=== PATIENT | female | born 1960 | race Hispanic/Latino ===

== ENCOUNTER 2017-02-04 09:35 | Inpatient (IN) | payer OTHER ==
--- NOTE | 2017-02-04 10:25 | ED PDOC ---
Arrival/HPI <Reyna Amaya - Last Filed: 02/04/17 13:51> <Bora Frye - Last Filed: 02/04/17 14:00> - General Chief Complaint: GI Problem Time Seen by Provider: 02/04/17 09:54 - History of Present Illness Narrative History of Present Illness (Text): 02/04/17 10:18 56 y/o F w/ PMHx of tobacco abuse presents to the ED c/o vomiting. Pt admits to ~1week of vomiting after solid food. Vomiting occurs immediately after swallowing. Pt reports liquid intolerance since Saturday w/ worsening yesterday. Pt admits to repeated bouts of NBNB vomiting yesterday w/ any PO intake. Pt reports decreased appetite [id number] and a 15lb weight-loss over the last month. Pt admits to lightheadedness, increased urinary frequency, urgency, and thirst, as well constipation. Pt denies CP, SOB, diarrhea, abd pain. Pt reports smoking cessation x1wk; previous 1ppd smoker. Admits to social EtOH and occasional marijuana. Pt has never had colonoscopy or EGD. 02/04/17 12:25 (Reyna Amaya) Past Medical History - Provider Review Nursing Documentation Reviewed: Yes - Past History Past History: No Previous - Infectious Disease Hx of Infectious Diseases: None - Tetanus Immunization Tetanus Immunization: Unknown - Psychiatric Hx Substance Use: No <Reyna Amaya - Last Filed: 02/04/17 13:51> Family/Social History - Physician Review Nursing Documentation Reviewed: Yes Family/Social History: No Known Family HX Smoking Status: Former Smoker Hx Alcohol Use: No Hx Substance Use: No <Reyna Amaya - Last Filed: 02/04/17 13:51> Allergies/Home Meds <Reyna Amaya - Last Filed: 02/04/17 13:51> <Bora Frye - Last Filed: 02/04/17 14:00> Allergies/Adverse Reactions: Allergies No Known Allergies Allergy (Verified 02/04/17 09:47) Home Medications: Home Meds Medication Instructions Recorded Confirmed No Known Home Med 03/10/16 02/04/17 Review of Systems - Physician Review All systems were reviewed & negative as marked: Yes - Review of Systems Respiratory: absent: SOB Cardiovascular: absent: Chest Pain <Reyna Amaya - Last Filed: 02/04/17 13:51> Physical Exam Vital Signs Reviewed: Yes Temperature: Afebrile Blood Pressure: Hypertensive Pulse: Tachycardic Respiratory Rate: Normal Appearance: Positive for: Ill-Appearing, Cachectic Pain Distress: Mild Mental Status: Positive for: Alert and Oriented X 3 - Systems Exam Head: Present: Atraumatic, Normocephalic Pupils: Present: PERRL Extroacular Muscles: Present: EOMI Conjunctiva: Present: Normal Mouth: Present: Dry Nose (External): Present: Atraumatic Neck: Present: Trachea Midline. No: Lymphadenopathy Respiratory/Chest: Present: Clear to Auscultation, Good Air Exchange. No: Respiratory Distress, Accessory Muscle Use Cardiovascular: Present: Regular Rate and Rhythm, Normal S1, S2. No: Murmurs Abdomen: Present: Normal Bowel Sounds. No: Tenderness, Distention, Peritoneal Signs, Rebound, Guarding Upper Extremity: Present: Normal Inspection Lower Extremity: Present: Normal Inspection Neurological: Present: GCS=15, Speech Normal Skin: Present: Warm, Dry, Normal Color Psychiatric: Present: Alert, Oriented x 3, Normal Insight, Normal Concentration <Dru Amayaanda - Last Filed: 02/04/17 13:51> Medical Decision Making - Lab Interpretations Interpretation: Abnormal lab values - RAD Interpretation Media Clerk: ED Physician (CXR: no active disease) - EKG Interpretation Interpreted by ED Physician: Yes (sinus tach, rate 121, no axis rotation or deviation) Type: 12 lead EKG <Reyna Amaya - Last Filed: 02/04/17 13:51> <Bora Frye - Last Filed: 02/04/17 14:00> ED Course and Treatment: 02/04/17 10:38 56 y/o F w/ vomiting - CXR - EKG - CBC, CMP, Lipase - UA 02/04/17 12:38 Pt w/ BG of 1248. ICU consult ordered. Spoke to Dr. Ely - pt accepted for ICU admission Spoke to Dr. Tsang, PMD, informed him of pt admission to ICU for hyperglycemia. 02/04/17 12:40 (Reyna Amaya) Patient seen and examined with resident. Came up with treatment and disposition plan with resident. (Zelikson,Bora) - Lab Interpretations Lab Results: 02/04/17 10:06 02/04/17 10:06 Lab Results 02/04/17 11:20: Urine Color Yellow, Urine Appearance Clear, Urine pH 6.0, Ur Specific Inglis <= 1.005, Urine Protein Negative, Urine Glucose (UA) >=1000, Urine Ketones 15 H, Urine Blood Negative, Urine Nitrate Negative, Urine Bilirubin Negative, Urine Urobilinogen 0.2, Ur Leukocyte Esterase Negative 02/04/17 10:06: Sodium 134, Potassium 3.3 L, Chloride 91 L, Carbon Dioxide 23, Anion Gap 23 H, BUN 20, Creatinine 0.7, Est GFR ( Amer) > 60, Est GFR ( Non-Af Amer) > 60, Random Glucose 1248 H*, Calcium 10.4, Total Bilirubin 0.6, AST 17, ALT 27, Alkaline Phosphatase 385 H, Total Creatine Kinase 30 L, Total Protein 6.7, Albumin 3.3, Globulin 3.3, Albumin/Globulin Ratio 1.0 L, Lipase 67 02/04/17 10:06: WBC 8.2, RBC 5.22, Hgb 15.8, Hct 47.7, MCV 91.4, MCH 30.3, MCHC 33.1, RDW 12.9, Plt Count 287, MPV 11.6 H, Gran % 84.2 H, Lymph % (Auto) 8.2 L, Cobb % (Auto) 7.5 H, Eos % (Auto) 0.0 L, Baso % (Auto) 0.1, Gran # 6.87 H, Lymph # 0.7 L, Cobb # 0.6, Eos # 0.0, Baso # 0.01 - RAD Interpretation Radiology Orders: 02/04/17 10:05 CXR [CHEST PORTABLE] [RAD] Stat - Medication Orders Current Medication Orders: Insulin Human Regular 100 (units/ Sodium Chloride) 100 mls @ 5 mls/hr IV .Q20H PRN; Protocol; 5 UNITS/HR PRN Reason: TITRATE PER MD ORDER Last Admin: 02/04/17 12:35 Dose: 5 units/hr, 5 mls/hr Sodium Chloride (Sodium Chloride 0.9%) 1,000 mls @ 200 mls/hr IV .Q5H GILDA Discontinued Medications Sodium Chloride (Sodium Chloride 0.9%) 1,000 mls @ 999 mls/hr IV .Q1H1M STA Stop: 02/04/17 11:47 Last Admin: 02/04/17 11:22 Dose: 999 mls/hr Sodium Chloride (Sodium Chloride 0.9%) 1,000 mls @ 999 mls/hr IV .Q1H1M STA Stop: 02/04/17 13:27 Last Admin: 02/04/17 12:40 Dose: 999 mls/hr Ondansetron HCl (Zofran Inj) 4 mg IVP STAT STA Stop: 02/04/17 10:50 Last Admin: 02/04/17 11:22 Dose: 4 mg <Reyna Amaya - Last Filed: 02/04/17 13:51> - Scribe Statement The provider has reviewed the documentation as recorded by the Scribe <Bora Frye - Last Filed: 02/04/17 14:00> - Scribe Statement Lis Mcclelland Provider Scribe Attestation: All medical record entries made by the Scribe were at my direction and personally dictated by me. I have reviewed the chart and agree that the record accurately reflects my personal performance of the history, physical exam, medical decision making, and the department course for this patient. I have also personally directed, reviewed, and agree with the discharge instructions and disposition. (Bora Frye) Disposition/Present on Arrival - Present on Arrival Any Indicators Present on Arrival: No History of DVT/PE: No History of Uncontrolled Diabetes: No Urinary Catheter: No History of Decub. Ulcer: No History Surgical Site Infection Following: None - Disposition Have Diagnosis and Disposition been Completed?: Yes Disposition Time: 11:34 Patient Plan: ICU <Reyna Amaya - Last Filed: 02/04/17 13:51> <Bora Frye - Last Filed: 02/04/17 14:00> - Disposition Diagnosis: New onset type 2 diabetes mellitus Disposition: HOSPITALIZED Patient Problems: Current Active Problems Problem Status Onset New onset type 2 diabetes mellitus Acute Condition: SERIOUS
[2017-02-04] MEDS ORDERED: Sodium Chloride 0.9% 1,000 ML IV STA ×2 (10:47→12:27)
[2017-02-04 11:11] LABS: ADD MANUAL DIFF? NO; BASO # 0.01 K/mm3 (0.0-2.0); BASO % 0.1 % (0.0-3.0); GRAN # 6.87 (1.4-6.5); GRAN % 84.2 % (50.0-68.0); HEMATOCRIT 47.7 % (36.0-48.0); LYMPH # 0.7 (1.2-3.4); LYMPH % 8.2 % (22.0-35.0); MEAN CELL VOLUME 91.4 fL (80.0-105.0); MEAN CORPUSCULAR HEMOGLOBIN 30.3 pg (25.0-35.0); MEAN CORPUSCULAR HGB CONC 33.1 g/dl (31.0-37.0); MEAN PLATELET VOLUME 11.6 fl (7.0-11.0); MONO # 0.6 (0.1-0.6); MONO % 7.5 % (1.0-6.0); PLATELET COUNT 287 10^3/uL (120.0-450.0); RED CELL DISTRIBUTION WIDTH 12.9 % (11.5-14.5); WHITE BLOOD COUNT 8.2 10^3/ul (4.5-11.0)
[2017-02-04 11:13] LABS: ALKALINE PHOSPHATASE 385 U/L (38-133); ALT/SGPT 27 U/L (7-56); AST/SGOT 17 U/L (15-39); BILIRUBIN,TOTAL 0.6 mg/dL (0.2-1.3); BLOOD UREA NITROGEN 20 mg/dL (7-21); CALCIUM 10.4 mg/dL (8.4-10.5); CARBON DIOXIDE 23 mmol/L (21-33); CHLORIDE 91 mmol/L (98-107); GFR AFRICAN-AMERICAN > 60; LIPASE 67 U/L (23-300); POTASSIUM 3.3 mmol/L (3.6-5.0); SODIUM 134 mmol/L (132-148); TOTAL PROTEIN 6.7 g/dL (5.8-8.3)
[2017-02-04 11:24] LABS: GLUCOSE,RANDOM 1248 mg/dL (70-110)
[2017-02-04 11:27] LABS: URINE BILIRUBIN NEGATIVE (NEGATIVE); URINE BLOOD NEGATIVE (NEGATIVE); URINE GLUCOSE (UA) >=1000 mg/dL (NEGATIVE); URINE KETONE 15 mg/dL (NEGATIVE); URINE LEUKOCYTE ESTERASE NEGATIVE Leu/uL (NEGATIVE); URINE PROTEIN NEGATIVE mg/dL (<30 mg/dL); URINE UROBILINOGEN 0.2 E.U./dL (<1 E.U./dL)
[2017-02-04 11:28] LABS: URINE APPEARANCE CLEAR (CLEAR); URINE COLOR YELLOW (YELLOW)
--- NOTE | 2017-02-04 11:45 | RAD ---
HISTORY: vomiting COMPARISON: No prior. FINDINGS: LUNGS: No active pulmonary disease. PLEURA: No significant pleural effusion identified, no pneumothorax apparent. CARDIOVASCULAR: Normal. OSSEOUS STRUCTURES: No significant abnormalities. VISUALIZED UPPER ABDOMEN: Normal. OTHER FINDINGS: None. IMPRESSION: No active disease.
[2017-02-04] MEDS ORDERED: Sodium Chloride 0.9% 1,000 ML IV SCH (12:30)
[2017-02-04] MEDS: Insulin Regular 100 UNITS in Sodium Chloride 0.9% 99 ML IV PRN (12:35)
[2017-02-04 13:02] LABS: BLOOD UREA NITROGEN 18 mg/dL (7-21); CALCIUM 9.8 mg/dL (8.4-10.5); CARBON DIOXIDE 23 mmol/L (21-33); CHLORIDE 102 mmol/L (98-107); GFR AFRICAN-AMERICAN > 60; POTASSIUM 3.1 mmol/L (3.6-5.0); SODIUM 141 mmol/L (132-148)
[2017-02-04 13:29] LABS: GLUCOSE,RANDOM 907 mg/dL (70-110)
[2017-02-04 15:10] VITALS: BMI 17.7
[2017-02-04] MEDS ORDERED: Pneumococcal 23-Valent Vaccine IM ONE (15:10)
--- NOTE | 2017-02-04 15:13 | CARD ---
APPROVED REPORT EKG Measurement Heart [id number] <Conclusion> Sinus tachycardia Biatrial enlargement ST & T wave abnormality, consider infero-lateral ischemia Abnormal ECG
[2017-02-04] MEDS ORDERED: Vancomycin 1gm in NS 250ml 1 GM/250 ML BAG IVPB SCH (15:15)
[2017-02-04 15:44] LABS: BLOOD UREA NITROGEN 17 mg/dL (7-21); CALCIUM 10.6 mg/dL (8.4-10.5); CARBON DIOXIDE 31 mmol/L (21-33); CHLORIDE 108 mmol/L (98-107); GFR AFRICAN-AMERICAN > 60; SODIUM 149 mmol/L (132-148)
[2017-02-04 16:05] LABS: GLUCOSE,RANDOM 454 mg/dL (70-110); POTASSIUM 2.6 mmol/L (3.6-5.0)
[2017-02-04] MEDS ORDERED: Potassium Chloride 40 mEq/30 ml LIQ UD PO ONE ×2 (16:24→16:25)
[2017-02-04] MEDS: Dextrose 5%/0.45% NS 1,000 ML IV SCH ×2 (17:23→22:30)
--- NOTE | 2017-02-04 17:28 | CON ---
DATE: 02/04/2017 HISTORY OF PRESENT ILLNESS: This is a 56-year-old lady without any past medical history who presented after about a week duration of failure to thrive, fatigue, malaise, nausea, loss of appetite. When she was evaluated in the Emergency Room, she was found to have highly elevated glucose up to 1248 and was very dehydrated on physical exam. Of note, she has never been diagnosed with diabetes mellitus in the past. ICU was called for further management and monitoring. No nausea, no vomiting, no diarrhea, no constipation, no chest pain , no shortness of breath. PAST MEDICAL HISTORY: None. MEDICATIONS: None. ALLERGIES: NKDA. SOCIAL HISTORY: The patient is an active smoker and has been smoking for many years. She drinks about a 6-pack of beer a day. No illicit drug abuse. REVIEW OF SYSTEMS: Review of 12 organ system, other than mentioned in history of present illness, is negative. LABORATORY DATA: Sodium 134, potassium 3.3, chloride 91, carbon dioxide 23, BUN 20, creatinine 0.7, glucose 1248. WBC 8.2, hemoglobin 15.8, platelet count 287, hematocrit 47.7. Urine is negative for leukocyte esterase, nitrites; however, positive for ketones and glucose. PHYSICAL EXAMINATION: VITAL SIGNS: Temperature 98.4, heart rate 117, blood pressure 121/80, respiratory rate 17, oxygen saturation 98% on room air. HEAD AND NECK: Atraumatic. LUNGS: Clear to auscultation bilaterally. HEART: Regular rate and rhythm. S1, S2 normal. ABDOMEN: Soft, nontender, nondistended. MUSCULOSKELETAL: No C/C/E. NEUROLOGIC: The patient moves all extremities spontaneously. SKIN: Moist. PSYCHIATRIC: The patient is alert and oriented x 3. ASSESSMENT AND PLAN: This 56-year-old lady with new onset diabetes presented with diabetic ketoacidosis. At present time, will start with IV fluid resuscitation, insulin drip, BMP every 4 hours, Accu-Chek every [address] Arnold from endocrinology service will be contacted for the service. Diabetic education will be provided. Will continue to target euvolemia, euglycemia, normothermia and oxygen saturation more than 90%. When anion gap closed, will switch from insulin drip to longer acting subQ formulations of the insulin. Once blood glucose hits below 250, IV fluids will be switched to D5 containing solutions to avoid hypoglycemia. Of note patient appear to have abscess in groin area--will get CT abdo/pelvis and start Vanco empirically. blood/urine culture was sent ccm time 40 min Marlon Ely MD cc: [id number] TT: 02/04/2017 17:27:37 Confirmation # [id number] Dictation # [id number] mn FARAZD
[2017-02-04 19:45] LABS: PH,URINE 6.5 (4.7-8.0); URINE BILIRUBIN NEGATIVE (NEGATIVE); URINE BLOOD SMALL (NEGATIVE); URINE GLUCOSE (UA) >=1000 mg/dL (NEGATIVE); URINE KETONE TRACE mg/dL (NEGATIVE); URINE LEUKOCYTE ESTERASE TRACE Leu/uL (NEGATIVE); URINE PROTEIN 30 mg/dL (<30 mg/dL); URINE UROBILINOGEN 0.2 E.U./dL (<1 E.U./dL)
[2017-02-04 19:48] LABS: URINE APPEARANCE CLEAR (CLEAR); URINE COLOR YELLOW (YELLOW)
[2017-02-04 20:02] LABS: URINE BACTERIA LARGE (NEG)
[2017-02-04 20:09] LABS: BLOOD UREA NITROGEN 16 mg/dL (7-21); CARBON DIOXIDE 28 mmol/L (21-33); CHLORIDE 109 mmol/L (98-107); GFR AFRICAN-AMERICAN > 60; GLUCOSE,RANDOM 229 mg/dL (70-110); POTASSIUM 4.2 mmol/L (3.6-5.0); SODIUM 141 mmol/L (132-148)
--- NOTE | 2017-02-04 20:59 | CON ---
DATE: 02/04/2017 In ICU 128, room 3. HISTORY OF PRESENT ILLNESS: This is a 56-year-old female with no apparent medical history presenting here with intractable nausea, dyspepsia and vomiting lasting about a week or so, but worse on the da y of admission as noted. She also has had progressively worsening polyuria, nocturia, polydipsia, an d about 15-pound or so weight loss over the past month as noted. On the day of admission, she develo ped dizziness and lightheadedness, worsening until the time of admission prompting the subsequent ER evaluation and admission thereof. She also admits to bifrontal headaches with visual blurring, again worse in the last week or so prior to admission. PAST MEDICAL HISTORY: Essentially unremarkable. SOCIAL HISTORY: The patient admits to chronic alcoholism and cigarette smoking with occasional marij uana use as noted. FAMILY HISTORY: Positive for hypertension and diabetes. REVIEW OF SYSTEMS: As mentioned above, admits to generalized body weakness with easy fatigability an d tiredness and suboptimal energy level, with worsening dizziness and lightheadedness, especially on the day of admission. No chest pains or palpitations or PNDs. Her oral intake has been variable and suboptimal with nausea, dyspepsia and progressively worsening polyuria, nocturia, and polydipsia. S he also admits to vague upper abdominal pain with habitual constipation. PHYSICAL EXAMINATION: GENERAL: This is an average built female in no apparent distress. VITAL SIGNS: Blood pressure of 140/80, pulse of 70 beats per minute and regular, temperature 98, res pirations 20. Height is 5 feet 1, weight is 94 pounds. HEENT: Head normocephalic. Eyes anicteric with pink conjunctivae. Fundoscopy not possible at this time. Ears, nose and throat otherwise normal. NECK: Supple. Thyroid gland is normal size. No carotid bruits or any cervical adenopathy. CARDIOPULMONARY: Some adynamic precordium. S1, S2 is rapid and regular. LUNGS: Clear to auscultation. ABDOMEN: Flat, soft with positive bowel sounds. EXTREMITIES: No peripheral edema. Pulses are +2 bilaterally. SKIN: Her skin turgor is dry and the buccal mucosa and lips are parched and dry. LABORATORY DATA: Chemistry showed a BUN of 20, sodium 134, potassium 3.3, chloride 91, CO2 of 23, gl ucose 1248 mg/dL and creatinine 0.7. Alkaline phosphatase is 385 and lipase is 67. Subsequent gluco ses have ranged from 500 to 907 mg/dL. ASSESSMENT: This is a 56-year-old female with uncontrolled and decompensated type 2 insulin-requirin g diabetes, presenting here with hyperosmolar hyperglycemic state and clinical and biochemical eviden ce of dehydration and prerenal azotemia with spurious hyponatremia. She also has mild metabolic acid osis and ketosis as expected from the underlying starvation ketosis, recent intractable vomiting epis odes thereof. PLAN OF MANAGEMENT: As discussed with the patient and the staff, we will continue and concur with th e present insulin drip infusion as ordered and would use the DKA algorithm as noted. We will also st art her on vigorous IV hydration with normal saline to be continued at 200 mL per hour as ordered. S he is actually very volume depleted and would need vigorous IV hydration as mentioned. We will also obtain a serum C-peptide to ascertain her endogenous pancreatic reserve at this time. In the meantim e, we will obtain serial chemistries and supplement accordingly as needed. We will continue the IV h ydration with normal saline given as 200 mL per hour as ordered. We will obtain serial chemistries a nd supplement accordingly as needed. Baseline lipid panel and thyroid studies have also been obtaine d. We will follow. Kaelyn Arnold MD cc: [id number] TT: 02/04/2017 20:58:40 Confirmation # [id number] Dictation # [id number] gunnar
[2017-02-05 01:09] LABS: BLOOD UREA NITROGEN 15 mg/dL (7-21); CALCIUM 9.6 mg/dL (8.4-10.5); CARBON DIOXIDE 30 mmol/L (21-33); CHLORIDE 106 mmol/L (98-107); GFR AFRICAN-AMERICAN > 60; GLUCOSE,RANDOM 137 mg/dL (70-110); POTASSIUM 3.4 mmol/L (3.6-5.0); SODIUM 140 mmol/L (132-148)
[2017-02-05] MEDS: Dextrose 5%/0.45% NS 1,000 ML IV SCH (03:15)
[2017-02-05] MEDS: Insulin Regular 100 UNITS in Sodium Chloride 0.9% 99 ML IV PRN (05:00)
[2017-02-05] MEDS ORDERED: Potassium Chloride 40 mEq/30 ml LIQ UD PO ONE (06:51)
[2017-02-05 06:53] LABS: ADD MANUAL DIFF? NO
[2017-02-05 07:05] LABS: BASO # 0.01 K/mm3 (0.0-2.0); BASO % 0.1 % (0.0-3.0); EOS # 0.1 (0.0-0.7); EOS % 0.7 % (1.5-5.0); GRAN # 8.92 (1.4-6.5); GRAN % 71.5 % (50.0-68.0); HEMATOCRIT 36.5 % (36.0-48.0); LYMPH # 2.4 (1.2-3.4); LYMPH % 19.4 % (22.0-35.0); MEAN CELL VOLUME 85.3 fL (80.0-105.0); MEAN CORPUSCULAR HEMOGLOBIN 29.4 pg (25.0-35.0); MEAN CORPUSCULAR HGB CONC 34.5 g/dl (31.0-37.0); MEAN PLATELET VOLUME 10.2 fl (7.0-11.0); MONO % 8.3 % (1.0-6.0); PLATELET COUNT 159 10^3/uL (120.0-450.0); RED CELL DISTRIBUTION WIDTH 12.7 % (11.5-14.5); WHITE BLOOD COUNT 12.5 10^3/ul (4.5-11.0)
[2017-02-05 07:23] LABS: ALB/GLOB RATIO 0.8 (1.1-1.8); ALKALINE PHOSPHATASE 195 U/L (38-133); ALT/SGPT 28 U/L (7-56); AST/SGOT 28 U/L (15-39); BILIRUBIN,TOTAL 0.3 mg/dL (0.2-1.3); BLOOD UREA NITROGEN 15 mg/dL (7-21); CALCIUM 9.2 mg/dL (8.4-10.5); CARBON DIOXIDE 27 mmol/L (21-33); CHLORIDE 109 mmol/L (98-107); CHOLESTEROL 138 mg/dL (130-200); GFR AFRICAN-AMERICAN > 60; GLUCOSE,RANDOM 134 mg/dL (70-110); POTASSIUM 3.6 mmol/L (3.6-5.0); SODIUM 140 mmol/L (132-148); TOTAL PROTEIN 5.1 g/dL (5.8-8.3)
[2017-02-05] MEDS: Vancomycin 1gm in NS 250ml 1 GM/250 ML BAG IVPB SCH ×2 (09:03→21:43)
[2017-02-05] MEDS: Insulin Detemir 100 units/ml Vial (Levemir) SC SCH (09:03)
[2017-02-05] MEDS: Enoxaparin 40 mg Syringe SC SCH (09:04)
--- NOTE | 2017-02-05 09:12 | CP.PCM.PN ---
<JuliannaCheyenne - Last Filed: 02/05/17 12:41> Subjective - Date & Time of Evaluation Date of Evaluation: 02/05/17 Time of Evaluation: 09:08 - Subjective Subjective: ICU Progress Note Patient seen and examined at bedside. There were no acute overnight events. Patient reports feeling better. Her appetite has improved and is eating well. She denies having any pain, CP, SOB, n/v/d, numbness/tingling. Objective - Vital Signs/Intake and Output Vital Signs (last 24 hours): Temp Pulse Resp BP Pulse Ox 98.6 F 89 22 142/86 100 02/04/17 15:46 02/05/17 07:01 02/04/17 15:46 02/04/17 15:46 02/04/17 15:46 Intake and Output: 02/05/17 02/05/17 06:59 18:59 Intake Total 2371.3 Output Total 150 Balance 2221.3 - Medications Medications: Current Medications Enoxaparin Sodium (Lovenox) 40 mg SC DAILY GILDA PRN Reason: Protocol Insulin Human Regular 100 (units/ Sodium Chloride) 100 mls @ 5 mls/hr IV .Q20H PRN; Protocol; 5 UNITS/HR PRN Reason: TITRATE PER MD ORDER Last Titration: 02/05/17 06:05 Dose: 3 units/hr, 3 mls/hr Dextrose/Sodium Chloride (Dextrose 5%/0.45% Ns 1000 Ml) 1,000 mls @ 200 mls/hr IV .Q5H GILDA Last Admin: 02/05/17 03:15 Dose: 200 mls/hr Vancomycin HCl (Vancomycin 1gm) 1 gm in 250 mls @ 167 mls/hr IVPB Q12 GILDA PRN Reason: Protocol Insulin Detemir (Levemir) 47 unit SC DAILY [facility] Insulin Human Regular (Humulin R High) 0 units SC ACHS GILDA PRN Reason: Protocol Ondansetron HCl (Zofran Inj) 4 mg IVP Q4H PRN PRN Reason: Nausea/Vomiting - Labs Labs: 02/05/17 06:00 02/05/17 06:00 - Constitutional Appears: No Acute Distress - Head Exam Head Exam: ATRAUMATIC, NORMAL INSPECTION, NORMOCEPHALIC - Eye Exam Eye Exam: Normal appearance, PERRL Pupil Exam: NORMAL ACCOMODATION, PERRL - ENT Exam ENT Exam: Mucous Membranes Moist - Neck Exam Neck Exam: Full ROM - Respiratory Exam Respiratory Exam: Clear to Ausculation Bilateral, NORMAL BREATHING PATTERN. absent: Rales, Rhonchi, Wheezes - Cardiovascular Exam Cardiovascular Exam: REGULAR RHYTHM, +S1, +S2. absent: Gallop, Rubs, Murmur - GI/Abdominal Exam GI & Abdominal Exam: Soft, Normal Bowel Sounds. absent: Rigid, Tenderness, Mass , Rebound - Exam External exam: Lesions (abscess with drainage ) - Extremities Exam Extremities Exam: Full ROM, Normal Inspection. absent: Calf Tenderness, Pedal Edema - Neurological Exam Neurological Exam: Alert, Awake, CN II-XII Intact, Oriented x3 - Psychiatric Exam Psychiatric exam: Normal Affect, Normal Mood - Skin Skin Exam: Dry, Intact, Normal Color, Warm Additional comments: abscess on L inguinal region near mons pubis- draining Assessment and Plan - Assessment and Plan (Free Text) Assessment: This is a 56Y F with PMH of tobacco abuse admitted for hyperglycemia and found to have L sided inguinal abscess. Plan: Neuro: A&O x 3 Maintain normothermia CV: Hemodynamically stable maintain MAP >65 Resp: Comfortable on room air Maintain spO2>90% GI: Pt tolerating diet Zofran prn nausea Nephro: Continue to monitor electrolytes and will replace as needed ID: L inguinal abscess- draining Wound culture pending CT abd/pelvis showed soft tissue mass possibly representing phlegmon with no ecidence of well-defined density abscess Consider surgical consult for I&D Blood culture and urine culture pending Continue Vanco PCT low afebrile, mild leukocytosis Heme: Hgb stable Continue to monitor CBC Endo: Hyperosmolar nonketotic acidosis- improved Anion gap closed - BGM <150 Started SC insulin Continue BGM HgbA1c pending Lipid panel within normal limits Endo consulted- recs appreciated TSH noted to be low, T4 ordered GI ppx: Pepcid DVT ppx: Lovenox Dispo: Patient stable, HONK improved. Patient will be transferred to remote telemetry. case seen, discussed and reviewed with attending. Bert Levine PGY1 <Marlon lEy - Last Filed: 02/05/17 17:35> Objective - Vital Signs/Intake and Output Vital Signs (last 24 hours): Temp Pulse Resp BP Pulse Ox 98.6 F 87 21 129/73 99 02/04/17 15:46 02/05/17 15:20 02/05/17 15:20 02/05/17 15:00 02/05/17 15:20 Intake and Output: 02/05/17 02/05/17 06:59 18:59 Intake Total 2371.3 Output Total 150 Balance 2221.3 - Medications Medications: Current Medications Enoxaparin Sodium (Lovenox) 40 mg SC DAILY GILDA PRN Reason: Protocol Last Admin: 02/05/17 09:04 Dose: 40 mg Famotidine (Pepcid) 40 mg PO HS GILDA Vancomycin HCl (Vancomycin 1gm) 1 gm in 250 mls @ 167 mls/hr IVPB Q12 GILDA PRN Reason: Protocol Last Admin: 02/05/17 09:03 Dose: 167 mls/hr Piperacillin Sod/Tazobactam Sod (Zosyn 3.375 In Ns 100ml) 100 mls @ 200 mls/hr IVPB Q6 GILDA PRN Reason: Protocol Stop: 02/12/17 12:01 Last Admin: 02/05/17 17:22 Dose: 200 mls/hr Insulin Detemir (Levemir) 47 unit SC DAILY GILDA Last Admin: 02/05/17 09:03 Dose: 47 unit Insulin Human Regular (Humulin R High) 0 units SC ACHS GILDA PRN Reason: Protocol Last Admin: 02/05/17 17:22 Dose: Not Given Ondansetron HCl (Zofran Inj) 4 mg IVP Q4H PRN PRN Reason: Nausea/Vomiting - Labs Labs: 02/05/17 06:00 02/05/17 06:00 Addendum Addendum: 02/05/17 17:28 Patient was seen, examined and discussed at bedside with Dr. Lopez. her note reflects my exam, assessment and plan, except as below. Meds/Labs/ONE reviewed 56 yo with new onset DM with DKA, now resolved. AG closed, switched to sc formulation, eating ok. ok to downgrade to medsurg ccm time 40 min
--- NOTE | 2017-02-05 10:28 | CT ---
PROCEDURE: CT Abdomen and Pelvis without intravenous contrast HISTORY: labial abscess COMPARISON: None. TECHNIQUE: Without contrast. Contrast Dose: Radiation dose: Total exam DLP = 239 mGy-cm. This CT exam was performed using one or more of the following dose reduction techniques: Automated exposure control, adjustment of the mA and/or kV according to patient size, and/or use of iterative reconstruction technique. FINDINGS: LOWER THORAX: Unremarkable. LIVER: Unremarkable. No gross lesion or ductal dilatation. GALLBLADDER AND BILE DUCTS: Contracted PANCREAS: Unremarkable. No gross lesion or ductal dilatation. SPLEEN: Unremarkable. ADRENALS: Unremarkable. No mass. KIDNEYS AND URETERS: Unremarkable. No hydronephrosis. No solid mass. 2 mm nonobstructing stone in the left kidney VASCULATURE: Unremarkable. No aortic aneurysm. BOWEL: Unremarkable. No obstruction. No gross mural thickening. APPENDIX: Unremarkable. Normal appendix. PERITONEUM: Unremarkable. No free fluid. No free air. LYMPH NODES: Enlarged inguinal lymph nodes are seen left greater than right. BLADDER: Unremarkable. REPRODUCTIVE: Subcutaneous inflammatory changes are seen in the region of the labia. There is a soft tissue mass which probably represents a phlegmon. There is no evidence of a well-defined fluid density abscess. Findings are best seen on images 128 through 145. BONES: No acute fracture. OTHER FINDINGS: None. IMPRESSION: Subcutaneous inflammatory changes in the region of the left side of the labia without evidence of a well-defined fluid density abscess. There is associated inguinal adenopathy.
--- NOTE | 2017-02-05 10:57 | CP.PCM.CON ---
History of Present Illness - History of Present Illness History of Present Illness: 56 year old male with PMH of significant smoking came in to [facility] because of intermittent vomiting for the past week which has worsened in the past few days, associated with anorexia, and generalized weakness. She is also complaining of pain along her right groin area which she states started about a week ago and has started to drain. She was apparently scratching the groin area previously. She denies animal contacts, no travel outdoors or swimming, no headache or dizziness, no chest pain, no SOB, no abdominal pain, no diarrhea, no dysuria, no dysphagia. In the ED, hyperglycemia was noted on the patient and is currently being treated for this in the ICU. Infectious diseases consult is requested to co-manage the patient's groin infection. Review of Systems - Review of Systems All systems: reviewed and no additional remarkable complaints except (as per HPI ) Past Patient History - Infectious Disease Hx of Infectious Diseases: None - Tetanus Immunizations Tetanus Immunization: Unknown - Past Social History Smoking Status: Former Smoker - CARDIAC Hx Cardiac Disorders: No - PULMONARY Hx Respiratory Disorders: Yes (SMOKED CIGARETTES. QUIT A WEEK AGO. JANUARY 29.) - NEUROLOGICAL Hx Neurological Disorder: No - HEENT Hx HEENT Problems: No - RENAL Hx Chronic Kidney Disease: No - ENDOCRINE/METABOLIC Hx Endocrine Disorders: Yes Hx Diabetes Mellitus Type 1: Yes (NEW O[place]ET) - HEMATOLOGICAL/ONCOLOGICAL Hx Blood Disorders: No - INTEGUMENTARY Hx Dermatological Problems: Yes Other/Comment: 02-04-17 LARGE ABSCESS TO LEFT PERINEAL AREA,ERYTHEMA,SWELLING, RED. BILATERAL GLUTEAL FOLD,BUTTOCKS AREA, RIGHT GROIN AREA AND IN BETWEEN UPPER THIGH HAS MULTIPLE PIMPLE LIKE RASISED RASH. DRY. STATES GOT [place]AMP[place] LAST 3 WEEKS AGO. - MUSCULOSKELETAL/RHEUMATOLOGICAL Hx Musculoskeletal Disorders: Yes Hx Falls: Yes Hx Fractures: Yes (DISLOCATION TO L FINGER) - GASTROINTESTINAL Hx Gastrointestinal Disorders: No - GENITOURINARY/GYNECOLOGICAL Hx Genitourinary Disorders: Yes (URINARY FREQUENCY) - PSYCHIATRIC Hx Psychophysiologic Disorder: No Hx Substance Use: Yes (MARIJUANA USE.LAST USED 2 WEEKS AGO.) Other/Comment: SMOKED CIGARETTES. QUIT JANUARY 2017 - SURGICAL HISTORY Hx Surgeries: No Meds Allergies/Adverse Reactions: Allergies Allergy/AdvReac Type Severity Reaction Status Date / Time No Known Allergies Allergy Verified 02/04/17 14:27 - Medications Medications: Current Medications Enoxaparin Sodium (Lovenox) 40 mg SC DAILY GILDA PRN Reason: Protocol Insulin Human Regular 100 (units/ Sodium Chloride) 100 mls @ 5 mls/hr IV .Q20H PRN; Protocol; 5 UNITS/HR PRN Reason: TITRATE PER MD ORDER Last Titration: 02/05/17 06:05 Dose: 3 units/hr, 3 mls/hr Dextrose/Sodium Chloride (Dextrose 5%/0.45% Ns 1000 Ml) 1,000 mls @ 200 mls/hr IV .Q5H PENDING SALE TO [facility] Last Admin: 02/05/17 03:15 Dose: 200 mls/hr Vancomycin HCl (Vancomycin 1gm) 1 gm in 250 mls @ 167 mls/hr IVPB Q12 GILDA PRN Reason: Protocol Insulin Detemir (Levemir) 47 unit SC DAILY PENDING SALE TO [facility] Insulin Human Regular (Humulin R High) 0 units SC ACHS GILDA PRN Reason: Protocol Ondansetron HCl (Zofran Inj) 4 mg IVP Q4H PRN PRN Reason: Nausea/Vomiting Physical Exam - Constitutional Appears: Non-toxic, No Acute Distress - Head Exam Head Exam: NORMAL INSPECTION - ENT Exam ENT Exam: Mucous Membranes Moist - Neck Exam Neck exam: Negative for: Lymphadenopathy, Meningismus - Respiratory Exam Respiratory Exam: Decreased Breath Sounds - Cardiovascular Exam Cardiovascular Exam: +S1, +S2 - GI/Abdominal Exam GI & Abdominal Exam: Soft. absent: Tenderness - Skin Additional comments: left groin area with erythematous fluctuant mass noted with some pus coming out - tender to touch Results - Vital Signs Recent Vital Signs: Last Vital Signs Temp 98.6 F 02/04/17 15:46 Pulse 89 02/05/17 07:01 Resp 22 02/04/17 15:46 BP 142/86 02/04/17 15:46 Pulse Ox 100 02/04/17 15:46 - Labs Result Diagrams: 02/05/17 06:00 02/05/17 06:00 Labs: Laboratory Results - last 24 hr 02/04/17 02/04/17 02/04/17 12:37 12:40 14:00 WBC RBC Hgb Hct MCV MCH MCHC RDW Plt Count MPV Gran % Lymph % (Auto) [place] % (Auto) Eos % (Auto) Baso % (Auto) Gran # Lymph # [place] # Eos # Baso # Sodium 141 Potassium 3.1 L Chloride 102 Carbon Dioxide 23 Anion Gap 19 BUN 18 Creatinine 0.6 Est GFR ( Amer) > 60 Est GFR (Non-Af Amer) > 60 POC Glucose (mg/dL) > 500 H* > 500 H* Random Glucose 907 H* D Calcium 9.8 Total Bilirubin AST ALT Alkaline Phosphatase Total Protein Albumin Globulin Albumin/Globulin Ratio Triglycerides Cholesterol LDL Cholesterol Direct HDL Cholesterol Procalcitonin TSH 3rd Generation Urine Color Urine Appearance Urine pH Ur Specific [place] Urine Protein Urine Glucose (UA) Urine Ketones Urine Blood Urine Nitrate Urine Bilirubin Urine Urobilinogen Ur Leukocyte Esterase Urine RBC Urine WBC Ur Epithelial Cells Urine Bacteria Urine Other 02/04/17 02/04/17 02/04/17 14:57 15:25 15:25 WBC RBC Hgb Hct MCV MCH MCHC RDW Plt Count MPV Gran % Lymph % (Auto) [place] % (Auto) Eos % (Auto) Baso % (Auto) Gran # Lymph # [place] # Eos # Baso # Sodium 149 H Potassium 2.6 L* Chloride 108 H Carbon Dioxide 31 Anion Gap 13 BUN 17 Creatinine 0.6 Est GFR ( Amer) > 60 Est GFR (Non-Af Amer) > 60 POC Glucose (mg/dL) 494 H* Random Glucose 454 H* D Calcium 10.6 H Total Bilirubin AST ALT Alkaline Phosphatase Total Protein Albumin Globulin Albumin/Globulin Ratio Triglycerides Cholesterol LDL Cholesterol Direct HDL Cholesterol Procalcitonin 0.10 L TSH 3rd Generation Urine Color Urine Appearance Urine pH Ur Specific [place] Urine Protein Urine Glucose (UA) Urine Ketones Urine Blood Urine Nitrate Urine Bilirubin Urine Urobilinogen Ur Leukocyte Esterase Urine RBC Urine WBC Ur Epithelial Cells Urine Bacteria Urine Other 02/04/17 02/04/17 02/04/17 16:18 16:49 18:08 WBC RBC Hgb Hct MCV MCH MCHC RDW Plt Count MPV Gran % Lymph % (Auto) [place] % (Auto) Eos % (Auto) Baso % (Auto) Gran # Lymph # [place] # Eos # Baso # Sodium Potassium Chloride Carbon Dioxide Anion Gap BUN Creatinine Est GFR ( Amer) Est GFR (Non-Af Amer) POC Glucose (mg/dL) 290 H 247 H 220 H Random Glucose Calcium Total Bilirubin AST ALT Alkaline Phosphatase Total Protein Albumin Globulin Albumin/Globulin Ratio Triglycerides Cholesterol LDL Cholesterol Direct HDL Cholesterol Procalcitonin TSH 3rd Generation Urine Color Urine Appearance Urine pH Ur Specific [place] Urine Protein Urine Glucose (UA) Urine Ketones Urine Blood Urine Nitrate Urine Bilirubin Urine Urobilinogen Ur Leukocyte Esterase Urine RBC Urine WBC Ur Epithelial Cells Urine Bacteria Urine Other 02/04/17 02/04/17 02/04/17 19:09 19:15 19:56 WBC RBC Hgb Hct MCV MCH MCHC RDW Plt Count MPV Gran % Lymph % (Auto) [place] % (Auto) Eos % (Auto) Baso % (Auto) Gran # Lymph # [place] # Eos # Baso # Sodium 141 Potassium 4.2 Chloride 109 H Carbon Dioxide 28 Anion Gap 8 L BUN 16 Creatinine 0.5 Est GFR ( Amer) > 60 Est GFR (Non-Af Amer) > 60 POC Glucose (mg/dL) 268 H Random Glucose 229 H Calcium 10.0 Total Bilirubin AST ALT Alkaline Phosphatase Total Protein Albumin Globulin Albumin/Globulin Ratio Triglycerides Cholesterol LDL Cholesterol Direct HDL Cholesterol Procalcitonin TSH 3rd Generation Urine Color Yellow Urine Appearance Clear Urine pH 6.5 Ur Specific [place] 1.020 Urine Protein 30 H Urine Glucose (UA) >=1000 Urine Ketones Trace H Urine Blood Small H Urine Nitrate Negative Urine Bilirubin Negative Urine Urobilinogen 0.2 Ur Leukocyte Esterase Trace H Urine RBC 5 - 10 Urine WBC 10 - 15 Ur Epithelial Cells 3 - 4 Urine Bacteria Large Urine Other Uyeast 02/04/17 02/04/17 02/04/17 21:02 22:04 22:56 WBC RBC Hgb Hct MCV MCH MCHC RDW Plt Count MPV Gran % Lymph % (Auto) [place] % (Auto) Eos % (Auto) Baso % (Auto) Gran # Lymph # [place] # Eos # Baso # Sodium Potassium Chloride Carbon Dioxide Anion Gap BUN Creatinine Est GFR ( Amer) Est GFR (Non-Af Amer) POC Glucose (mg/dL) 194 H 174 H 158 H Random Glucose Calcium Total Bilirubin AST ALT Alkaline Phosphatase Total Protein Albumin Globulin Albumin/Globulin Ratio Triglycerides Cholesterol LDL Cholesterol Direct HDL Cholesterol Procalcitonin TSH 3rd Generation Urine Color Urine Appearance Urine pH Ur Specific [place] Urine Protein Urine Glucose (UA) Urine Ketones Urine Blood Urine Nitrate Urine Bilirubin Urine Urobilinogen Ur Leukocyte Esterase Urine RBC Urine WBC Ur Epithelial Cells Urine Bacteria Urine Other 02/04/17 02/05/17 02/05/17 23:54 00:20 01:12 WBC RBC Hgb Hct MCV MCH MCHC RDW Plt Count MPV Gran % Lymph % (Auto) [place] % (Auto) Eos % (Auto) Baso % (Auto) Gran # Lymph # [place] # Eos # Baso # Sodium 140 Potassium 3.4 L Chloride 106 Carbon Dioxide 30 Anion Gap 7 L BUN 15 Creatinine 0.5 Est GFR ( Amer) > 60 Est GFR (Non-Af Amer) > 60 POC Glucose (mg/dL) 145 H 155 H Random Glucose 137 H Calcium 9.6 Total Bilirubin AST ALT Alkaline Phosphatase Total Protein Albumin Globulin Albumin/Globulin Ratio Triglycerides Cholesterol LDL Cholesterol Direct HDL Cholesterol Procalcitonin TSH 3rd Generation Urine Color Urine Appearance Urine pH Ur Specific [place] Urine Protein Urine Glucose (UA) Urine Ketones Urine Blood Urine Nitrate Urine Bilirubin Urine Urobilinogen Ur Leukocyte Esterase Urine RBC Urine WBC Ur Epithelial Cells Urine Bacteria Urine Other 02/05/17 02/05/17 02/05/17 02:02 03:20 04:14 WBC RBC Hgb Hct MCV MCH MCHC RDW Plt Count MPV Gran % Lymph % (Auto) [place] % (Auto) Eos % (Auto) Baso % (Auto) Gran # Lymph # [place] # Eos # Baso # Sodium Potassium Chloride Carbon Dioxide Anion Gap BUN Creatinine Est GFR ( Amer) Est GFR (Non-Af Amer) POC Glucose (mg/dL) 159 H 146 H 144 H Random Glucose Calcium Total Bilirubin AST ALT Alkaline Phosphatase Total Protein Albumin Globulin Albumin/Globulin Ratio Triglycerides Cholesterol LDL Cholesterol Direct HDL Cholesterol Procalcitonin TSH 3rd Generation Urine Color Urine Appearance Urine pH Ur Specific [place] Urine Protein Urine Glucose (UA) Urine Ketones Urine Blood Urine Nitrate Urine Bilirubin Urine Urobilinogen Ur Leukocyte Esterase Urine RBC Urine WBC Ur Epithelial Cells Urine Bacteria Urine Other 02/05/17 02/05/17 02/05/17 05:00 06:00 06:00 WBC 12.5 H D RBC 4.28 Hgb 12.6 Hct 36.5 MCV 85.3 MCH 29.4 MCHC 34.5 RDW 12.7 Plt Count 159 MPV 10.2 Gran % 71.5 H Lymph % (Auto) 19.4 L [place] % (Auto) 8.3 H Eos % (Auto) 0.7 L Baso % (Auto) 0.1 Gran # 8.92 H Lymph # 2.4 [place] # 1.0 H Eos # 0.1 Baso # 0.01 Sodium 140 Potassium 3.6 Chloride 109 H Carbon Dioxide 27 Anion Gap 8 L BUN 15 Creatinine 0.5 Est GFR ( Amer) > 60 Est GFR (Non-Af Amer) > 60 POC Glucose (mg/dL) 130 H Random Glucose 134 H Calcium 9.2 Total Bilirubin 0.3 AST 28 ALT 28 Alkaline Phosphatase 195 H Total Protein 5.1 L Albumin 2.2 L Globulin 2.9 Albumin/Globulin Ratio 0.8 L Triglycerides 106 Cholesterol 138 LDL Cholesterol Direct 91 HDL Cholesterol 29 Procalcitonin TSH 3rd Generation Urine Color Urine Appearance Urine pH Ur Specific [place] Urine Protein Urine Glucose (UA) Urine Ketones Urine Blood Urine Nitrate Urine Bilirubin Urine Urobilinogen Ur Leukocyte Esterase Urine RBC Urine WBC Ur Epithelial Cells Urine Bacteria Urine Other 02/05/17 02/05/17 06:00 07:13 WBC RBC Hgb Hct MCV MCH MCHC RDW Plt Count MPV Gran % Lymph % (Auto) [place] % (Auto) Eos % (Auto) Baso % (Auto) Gran # Lymph # [place] # Eos # Baso # Sodium Potassium Chloride Carbon Dioxide Anion Gap BUN Creatinine Est GFR ( Amer) Est GFR (Non-Af Amer) POC Glucose (mg/dL) 182 H Random Glucose Calcium Total Bilirubin AST ALT Alkaline Phosphatase Total Protein Albumin Globulin Albumin/Globulin Ratio Triglycerides Cholesterol LDL Cholesterol Direct HDL Cholesterol Procalcitonin TSH 3rd Generation < 0.02 L Urine Color Urine Appearance Urine pH Ur Specific [place] Urine Protein Urine Glucose (UA) Urine Ketones Urine Blood Urine Nitrate Urine Bilirubin Urine Urobilinogen Ur Leukocyte Esterase Urine RBC Urine WBC Ur Epithelial Cells Urine Bacteria Urine Other Assessment & Plan - Assessment and Plan (Free Text) Plan: Assessment Sepsis due to left groin purulent skin and skin structure infection in a patient with new-onset hyperglycemia significant smoking history Plan Started the patient on Vancomycin and Zosyn pending blood and wound cx and surgical evaluation and plans; also awaiting CT scan of the abdomen and pelvis results will monitor clinically
[2017-02-05] MEDS: Insulin Reg-HIGH-Coverage SC SCH ×3 (12:00→22:52)
[2017-02-05] MEDS: Piperacillin/Tazobact 3.375 gm 100 ML IVPB SCH ×2 (12:00→17:22)
--- NOTE | 2017-02-05 13:04 | HP ---
HISTORY OF PRESENT ILLNESS: The patient is a 56-year-old woman with no known medical problems who pr esented to [facility] Department with a 1-week history of malaise, dyspepsia, n ausea and multiple episodes of nonbloody, nonbilious vomiting. The patient states that she was in he r usual state of health until approximately 7-10 days ago when she developed the aforementioned sympt oms. The patient also reported progressively worsening polyuria, polydipsia and unintentional weight loss over the preceding 1 month as well as a discomfort to the left inguinal region for the precedin g 5-6 days. Upon arrival to the Emergency Department, she was noted to be tachycardic but otherwise hemodynamically stable. Workup in the Emergency Department demonstrated profound hyperglycemia up wi th a serum glucose of 1248 as well as an anion gap of 23. The patient was promptly evaluated by the ICU team and was subsequently started on aggressive IV fluid hydration and treatment protocol for DKA . This morning, the patient reports significant improvement in her symptoms since admission but does complain of discomfort to her right groin site due to an abscess that has formed. Otherwise, she de nies fevers, chills, nausea, vomiting or diarrhea. PAST MEDICAL HISTORY: None. PAST SURGICAL HISTORY: None. ALLERGIES: No known drug allergies. MEDICATIONS: None. FAMILY HISTORY: Significant for hypertension and diabetes. SOCIAL HISTORY: The patient reports an active [id number] smoking history and daily alcohol use. S he also reports occasional marijuana use but denies history of intravenous drug abuse. REVIEW OF SYSTEMS: A 14 point review of systems is negative except as per HPI. PHYSICAL EXAMINATION: VITAL SIGNS: Temperature 98.4, pulse 89, blood pressure 142/80, respiratory rate 18, oxygen saturati on 96% on room air. GENERAL: No apparent distress. HEENT: Normocephalic, atraumatic. PERRL, EOMI, no scleral icterus, no conjunctival pallor. Mucous membranes are slightly dry. NECK: Supple with full range of motion. No JVD, no bruits, no lymphadenopathy. LUNGS: Clear to auscultation. CARDIOVASCULAR: Regular rate and rhythm, normal S1 and S2, no murmurs, rubs or gallops. ABDOMEN: Normoactive bowel sounds, soft, nontender, nondistended. EXTREMITIES: No edema. NEUROLOGIC: Awake, alert and oriented x 3. No focal motor deficits. SKIN: A 3 cm x 3 cm round erythematous fluctuant lesion to the left inguinal/paralabial region with warmth and tenderness to palpation. LABORATORY DATA: WBC 12.5 with 72% neutrophils, hemoglobin 12.6, hematocrit 36, platelets 159. [place] um 140, potassium 3.6, chloride 109, bicarb 27, BUN 15, creatinine 0.5, glucose 134. Procalcitonin 0 .10. TSH less than 0.02. Cholesterol 138, triglycerides 106, HDL 29, LDL 91. Hemoglobin A1c pendin g. Blood cultures pending. Urine culture pending. IMAGING STUDIES: Chest x-ray, which demonstrates no acute pathology. ASSESSMENT: The patient is a 56-year-old woman with no known medical problems who presented to [facility] Emergency Department with a 1-week history of progressively worsening fatigue, yony ise, nausea, vomiting and dyspepsia, and who was admitted to the intensive care unit for management o f uncontrolled type 2 diabetes mellitus with hyperosmolar hyperglycemic state. PLAN: 1. Hyperosmolar hyperglycemic state. Input from Dr. Ely and the ICU team noted and greatly ayan reciated. Input from Dr. Kaelyn Arnold of endocrinology noted and also greatly appreciated. The patient is status post aggressive IV fluid hydration and insulin protocol for DKA with significant improveme nt in her presenting symptoms. Morning laboratory studies demonstrate closure of anion gap and, furt hermore, the patient is symptomatically significantly improved. Continue with care as per Dr. Arnold. 2. Type 2 diabetes mellitus, newly diagnosed. Continue with care as per #1. A hemoglobin A1c is or dered and pending. Will provide diabetic counseling. 3. Labial abscess. A CT of the abdomen and pelvis is ordered for further evaluation. Pending findi ngs of the CT, patient may require surgical consult. However, at present, the abscesses is draining on its own. Will consult Dr. Cruz of infectious disease for antimicrobial management. Continu e to monitor for fever and leukocytosis. Cultures have been ordered and are pending. 4. Tobacco dependence. The patient has been extensively counseled on the adverse health effects of smoking, and at present she declines a nicotine patch. 5. Prophylaxis. GI prophylaxis not indicated as patient is eating. Will start Lovenox 40 mg SC ania ly for DVT prophylaxis. CODE STATUS: Full code. Allan Tsang MD cc: [phone] TT: 02/05/2017 13:03:20 mn
--- NOTE | 2017-02-05 15:44 | PN ---
DATE: 02/05/2017 CCU 128, room 3. This is a 56-year-old female with recent uncontrolled type 2 insulin-requiring diabetes of recent ons et and diagnosis presenting here with hyperosmolar hyperglycemic state and dehydration and has since then received vigorous IV hydration and intensive insulin therapy as noted. She was taken off the in sulin drip infusion this morning as noted. The latest glucose levels have ranged from 134-137 and 22 9 mg/dL. Her latest chemistries today showed a BUN of 15, sodium 140, potassium 3.6, chloride 109, C O2 27, glucose 134, and creatinine 0.9. Her hemoglobin A1c is 16.6% which is not surprising with thi s degree elevation because she was really undiagnosed and uncontrolled until the present time metabol ically as noted. Her thyroid studies showed a free T4 of 4.05 with a TSH of 0.02 which clearly shows mild elevation of her thyroid indices and expected suppression otherwise as noted. We are either de aling with the so-called acute sick euthyroid syndrome as expected from the intercurrent physical str essors of this uncontrolled diabetic condition and/or subclinical hyperthyroidism and only further an d closer evaluation and followup will reveal the true nature and true status of her thyroid condition . We will repeat comprehensive thyroid function studies with a total thyroxine level and repeat TSH and free T4 levels and we will include thyroid antibodies which will confirm and/or negate the presen ce of underlying thyroid autoimmunity. We will also send out a serum C-peptide to ascertain the exac t nature of her diabetic condition whether we are dealing with a type 2 insulin-requiring diabetic ve rsus a type 1 insulin-dependent diabetic at this time. However, with her remarkable response to insu maria del carmen therapy and vigorous IV hydration, we are hoping that she indeed is a type 2 diabetic and transie ntly insulin requiring for now to optimize her metabolic control. She has been started by the medica l staff on basal insulin which was given this morning, but ideally should be given at that time to fo restall the hepatic gluconeogenesis and expected fasting hyperglycemic accelerations as noted thereof . We will observe her glycemic fluctuations today and determine the need whether she requires a basa l and bolus insulin drug combination versus the need for oral hypoglycemic therapy given in combinati on with basal insulin therapy at night. We will continue the vigorous IV hydration and obtain serial chemistries and supplement accordingly as needed. Kaelyn Arnold MD cc: [id number] TT: 02/05/2017 15:43:42 Confirmation # [id number] Dictation # [id number] tn
[2017-02-06] MEDS: Piperacillin/Tazobact 3.375 gm 100 ML IVPB SCH ×5 (00:09→23:56)
[2017-02-06 08:24] LABS: ADD MANUAL DIFF? NO
[2017-02-06 08:33] LABS: BASO # 0.01 K/mm3 (0.0-2.0); BASO % 0.1 % (0.0-3.0); EOS # 0.1 (0.0-0.7); EOS % 0.9 % (1.5-5.0); GRAN # 4.92 (1.4-6.5); GRAN % 65.7 % (50.0-68.0); HEMATOCRIT 38.7 % (36.0-48.0); LYMPH # 1.9 (1.2-3.4); MEAN CELL VOLUME 86.2 fL (80.0-105.0); MEAN CORPUSCULAR HEMOGLOBIN 29.8 pg (25.0-35.0); MEAN CORPUSCULAR HGB CONC 34.6 g/dl (31.0-37.0); MEAN PLATELET VOLUME 10.2 fl (7.0-11.0); MONO # 0.6 (0.1-0.6); MONO % 8.3 % (1.0-6.0); PLATELET COUNT 124 10^3/uL (120.0-450.0); RED CELL DISTRIBUTION WIDTH 12.5 % (11.5-14.5); WHITE BLOOD COUNT 7.5 10^3/ul (4.5-11.0)
[2017-02-06] MEDS: Insulin Reg-HIGH-Coverage SC SCH ×2 (08:35→11:32)
[2017-02-06 08:42] LABS: ALB/GLOB RATIO 0.8 (1.1-1.8); ALKALINE PHOSPHATASE 222 U/L (38-133); ALT/SGPT 52 U/L (7-56); AST/SGOT 47 U/L (15-39); BILIRUBIN,TOTAL 0.6 mg/dL (0.2-1.3); BLOOD UREA NITROGEN 12 mg/dL (7-21); CARBON DIOXIDE 27 mmol/L (21-33); CHLORIDE 103 mmol/L (98-107); GFR AFRICAN-AMERICAN > 60; GLUCOSE,RANDOM 187 mg/dL (70-110); POTASSIUM 3.6 mmol/L (3.6-5.0); SODIUM 136 mmol/L (132-148); TOTAL PROTEIN 5.8 g/dL (5.8-8.3)
--- NOTE | 2017-02-06 08:45 | PN ---
DATE: 02/06/2017 SUBJECTIVE: The patient was seen and examined at bedside on the remote telemetry plaza. No acute events overnight. She is status post transfer out of the ICU after being admitted for DKA and remains afebrile and hemodynamically stable. This morning she reports resolution of her dyspepsia, nausea and abdominal pain and is tolerating p.o. intake with no report of vomiting or diarrhea. She furthermore reports significant improvement in her left-sided labial abscess since initiation of IV antibiotics and denies fevers, chills or rigors. OBJECTIVE: VITAL SIGNS: Temperature 99.3, pulse 81, blood pressure 131/84, respiratory rate 20, oxygen saturation 97% on room air. GENERAL: No apparent distress. HEENT: Normocephalic, atraumatic. PERRL. EOMI. No scleral icterus. No conjunctival pallor. Mucous membranes are moist. NECK: Supple with full range of motion, no JVD, no bruits, no lymphadenopathy. LUNGS: Clear to auscultation. CARDIOVASCULAR: Regular rate and rhythm, normal S1 and S2, no murmurs, rubs or gallops. ABDOMEN: Normoactive bowel sounds, soft, nontender, nondistended. EXTREMITIES: No edema. NEUROLOGIC: Awake, alert and oriented x 3. No focal motor deficits. SKIN: Improved erythema to the left inguinal/para-labial region with some associated warm and tenderness to palpation. LABORATORY DATA: Morning labs are pending. ASSESSMENT: The patient is a 56-year-old woman with no known medical problems who presented to [facility] Emergency Department with a 1-week history of progressively worsening fatigue, malaise, nausea, vomiting and dyspepsia and who was admitted to the ICU for management of uncontrolled type 2 diabetes mellitus with hyperosmolar hyperglycemic state, who is now status post transfer out of the ICU and clinically improving. PLAN: 1. Hyperosmolar hyperglycemic state, resolved. Input from Dr. Ely and the ICU team greatly appreciated. Input from Dr. Arnold of endocrinology noted and greatly appreciated. The patient has been started on Levemir and insulin sliding scale with significant improvement in her fingersticks ranging from 98- 169. 2. Type 2 diabetes mellitus, newly diagnosed. Continue with care as per #1. Hemoglobin A1c is still pending. 3. Labial abscess, left sided. CT of the abdomen and pelvis reviewed. Input from Dr. Crowder noted and the patient remains on Zosyn 3.375 grams IV q. 6 hours and vancomycin 1 gram IV q. [address] Mena of surgery has been consulted for evaluation for possible I&D. 4. Tobacco dependence. Again, the patient has been counseled on the adverse health effects of smoking and continues to decline a nicotine patch. 5. Prophylaxis. GI prophylaxis not indicated as the patient is eating. Continue with Lovenox 40 mg SC daily for DVT prophylaxis. CODE STATUS: Full code. Allan Tsang MD cc: [phone] TT: 02/06/2017 08:44:59 Confirmation # [id number] Dictation # [id number] tn MTDD
[2017-02-06 09:00] LABS: FREE T4 3.12 ng/dL (0.78-2.19)
[2017-02-06 09:13] LABS: THYROID STIMULATING HORMONE < 0.02 mIU/mL (0.46-4.68)
[2017-02-06] MEDS: Enoxaparin 40 mg Syringe SC SCH (10:52)
[2017-02-06] MEDS: Vancomycin 1gm in NS 250ml 1 GM/250 ML BAG IVPB SCH ×2 (10:52→21:42)
--- NOTE | 2017-02-06 11:22 | CP.PCM.CON ---
<Kenji Aceves - Last Filed: 02/06/17 11:33> History of Present Illness - History of Present Illness History of Present Illness: Kenji Aceves D.O. PGY-1, General Surgery Consultation Note: Dr. El Noble. 56 year old female who originally presented with vomiting, found to be in DKA with glucose of 1248, general surgery consultation placed for left groin/labial abscess. Patient was seen and examined at bedside with attending physician. Patient states that she started to have some discomfort the morning of the day she presented and then began to have some pain over the area. However, patient excitedly states that she currently has no more pain, the swelling has gone down , and the area has been draining. Patient states that she does not think that anything needs to be done for the abscess at this time. Denies fevers, chills, pain, N/V/C/D, or other complaints. Review of Systems - Review of Systems All systems: reviewed and no additional remarkable complaints except - Integumentary Integumentary: Swelling Past Patient History - Infectious Disease Hx of Infectious Diseases: None - Tetanus Immunizations Tetanus Immunization: Unknown - Past Social History Smoking Status: Former Smoker - CARDIAC Hx Cardiac Disorders: No - PULMONARY Hx Respiratory Disorders: Yes (SMOKED CIGARETTES. QUIT A WEEK AGO. JANUARY 29.) - NEUROLOGICAL Hx Neurological Disorder: No - HEENT Hx HEENT Problems: No - RENAL Hx Chronic Kidney Disease: No - ENDOCRINE/METABOLIC Hx Endocrine Disorders: Yes Hx Diabetes Mellitus Type 1: Yes ([place]) - HEMATOLOGICAL/ONCOLOGICAL Hx Blood Disorders: No - INTEGUMENTARY Hx Dermatological Problems: Yes Other/Comment: 02-04-17 LARGE ABSCESS TO LEFT PERINEAL AREA,ERYTHEMA,SWELLING, RED. BILATERAL GLUTEAL FOLD,BUTTOCKS AREA, RIGHT GROIN AREA AND IN BETWEEN UPPER THIGH HAS MULTIPLE PIMPLE LIKE RASISED RASH. DRY. STATES GOT [place]AMP[place] LAST 3 WEEKS AGO. - MUSCULOSKELETAL/RHEUMATOLOGICAL Hx Musculoskeletal Disorders: Yes Hx Falls: Yes Hx Fractures: Yes (DISLOCATION TO L FINGER) - GASTROINTESTINAL Hx Gastrointestinal Disorders: No - GENITOURINARY/GYNECOLOGICAL Hx Genitourinary Disorders: Yes (URINARY FREQUENCY) - PSYCHIATRIC Hx Psychophysiologic Disorder: No Hx Substance Use: Yes (MARIJUANA USE.LAST USED 2 WEEKS AGO.) Other/Comment: SMOKED CIGARETTES. QUIT JANUARY 2017 - SURGICAL HISTORY Hx Surgeries: No Meds Allergies/Adverse Reactions: Allergies Allergy/AdvReac Type Severity Reaction Status Date / Time No Known Allergies Allergy Verified 02/04/17 14:27 - Medications Medications: Current Medications Enoxaparin Sodium (Lovenox) 40 mg SC DAILY GILDA PRN Reason: Protocol Last Admin: 02/06/17 10:52 Dose: 40 mg Famotidine (Pepcid) 40 mg PO HS [facility] Last Admin: 02/05/17 21:42 Dose: 40 mg Vancomycin HCl (Vancomycin 1gm) 1 gm in 250 mls @ 167 mls/hr IVPB Q12 GILDA PRN Reason: Protocol Last Admin: 02/06/17 10:52 Dose: 167 mls/hr Piperacillin Sod/Tazobactam Sod (Zosyn 3.375 In Ns 100ml) 100 mls @ 200 mls/hr IVPB Q6 GILDA PRN Reason: Protocol Stop: 02/12/17 12:01 Last Admin: 02/06/17 06:58 Dose: 200 mls/hr Insulin Detemir (Levemir) 47 unit SC DAILY [facility] Last Admin: 02/05/17 09:03 Dose: 47 unit Insulin Human Regular (Humulin R High) 0 units SC ACHS GILDA PRN Reason: Protocol Last Admin: 02/06/17 08:35 Dose: 2 units Ondansetron HCl (Zofran Inj) 4 mg IVP Q4H PRN PRN Reason: Nausea/Vomiting Physical Exam - Constitutional Appears: Well, Non-toxic, No Acute Distress - Head Exam Head Exam: ATRAUMATIC, NORMOCEPHALIC - Eye Exam Eye Exam: EOMI, Normal appearance. absent: Scleral icterus - ENT Exam ENT Exam: Mucous Membranes Moist - Respiratory Exam Respiratory Exam: absent: Accessory Muscle Use, Respiratory Distress - Exam Additional comments: left groin swelling with extension down towards the left labia, mild erythema, actively draining thru ~3mm hole, pus visualized - Extremities Exam Extremities exam: Negative for: pedal edema - Neurological Exam Neurological exam: Alert, Oriented x3 - Skin Skin Exam: Dry, Warm Results - Vital Signs Recent Vital Signs: Last Vital Signs Temp 99.1 F 02/06/17 09:24 Pulse 86 02/06/17 09:24 Resp 20 02/06/17 09:24 BP 130/74 02/06/17 09:24 Pulse Ox 97 02/06/17 09:24 - Labs Result Diagrams: 02/06/17 08:00 02/06/17 08:00 Labs: Laboratory Results - last 24 hr 02/04/17 02/05/17 02/05/17 19:56 06:00 06:00 WBC RBC Hgb Hct MCV MCH MCHC RDW Plt Count MPV Gran % Lymph % (Auto) [place] % (Auto) Eos % (Auto) Baso % (Auto) Gran # Lymph # [place] # Eos # Baso # Sodium Potassium Chloride Carbon Dioxide Anion Gap BUN Creatinine Est GFR ( Amer) Est GFR (Non-Af Amer) POC Glucose (mg/dL) Random Glucose Hemoglobin A1c 16.6 H Calcium Total Bilirubin AST ALT Alkaline Phosphatase Total Protein Albumin Globulin Albumin/Globulin Ratio Free T4 4.05 H Thyroxine (T4) TSH 3rd Generation HIV 1&2 Antibody Screen Negative 02/05/17 02/05/17 02/05/17 08:04 08:53 09:57 WBC RBC Hgb Hct MCV MCH MCHC RDW Plt Count MPV Gran % Lymph % (Auto) [place] % (Auto) Eos % (Auto) Baso % (Auto) Gran # Lymph # [place] # Eos # Baso # Sodium Potassium Chloride Carbon Dioxide Anion Gap BUN Creatinine Est GFR ( Amer) Est GFR (Non-Af Amer) POC Glucose (mg/dL) 181 H 229 H 236 H Random Glucose Hemoglobin A1c Calcium Total Bilirubin AST ALT Alkaline Phosphatase Total Protein Albumin Globulin Albumin/Globulin Ratio Free T4 Thyroxine (T4) TSH 3rd Generation HIV 1&2 Antibody Screen 02/05/17 02/05/17 02/05/17 11:01 11:49 12:59 WBC RBC Hgb Hct MCV MCH MCHC RDW Plt Count MPV Gran % Lymph % (Auto) [place] % (Auto) Eos % (Auto) Baso % (Auto) Gran # Lymph # [place] # Eos # Baso # Sodium Potassium Chloride Carbon Dioxide Anion Gap BUN Creatinine Est GFR ( Amer) Est GFR (Non-Af Amer) POC Glucose (mg/dL) 197 H 155 H 170 H Random Glucose Hemoglobin A1c Calcium Total Bilirubin AST ALT Alkaline Phosphatase Total Protein Albumin Globulin Albumin/Globulin Ratio Free T4 Thyroxine (T4) TSH 3rd Generation HIV 1&2 Antibody Screen 02/05/17 02/05/17 02/05/17 13:57 14:57 17:21 WBC RBC Hgb Hct MCV MCH MCHC RDW Plt Count MPV Gran % Lymph % (Auto) [place] % (Auto) Eos % (Auto) Baso % (Auto) Gran # Lymph # [place] # Eos # Baso # Sodium Potassium Chloride Carbon Dioxide Anion Gap BUN Creatinine Est GFR ( Amer) Est GFR (Non-Af Amer) POC Glucose (mg/dL) 117 H 98 113 H Random Glucose Hemoglobin A1c Calcium Total Bilirubin AST ALT Alkaline Phosphatase Total Protein Albumin Globulin Albumin/Globulin Ratio Free T4 Thyroxine (T4) TSH 3rd Generation HIV 1&2 Antibody Screen 02/05/17 02/06/17 02/06/17 21:28 07:17 08:00 WBC 7.5 D RBC 4.49 Hgb 13.4 Hct 38.7 MCV 86.2 MCH 29.8 MCHC 34.6 RDW 12.5 Plt Count 124 MPV 10.2 Gran % 65.7 Lymph % (Auto) 25.0 [place] % (Auto) 8.3 H Eos % (Auto) 0.9 L Baso % (Auto) 0.1 Gran # 4.92 Lymph # 1.9 [place] # 0.6 Eos # 0.1 Baso # 0.01 Sodium Potassium Chloride Carbon Dioxide Anion Gap BUN Creatinine Est GFR ( Amer) Est GFR (Non-Af Amer) POC Glucose (mg/dL) 79 169 H Random Glucose Hemoglobin A1c Calcium Total Bilirubin AST ALT Alkaline Phosphatase Total Protein Albumin Globulin Albumin/Globulin Ratio Free T4 Thyroxine (T4) TSH 3rd Generation HIV 1&2 Antibody Screen 02/06/17 02/06/17 08:00 08:00 WBC RBC Hgb Hct MCV MCH MCHC RDW Plt Count MPV Gran % Lymph % (Auto) [place] % (Auto) Eos % (Auto) Baso % (Auto) Gran # Lymph # [place] # Eos # Baso # Sodium 136 Potassium 3.6 Chloride 103 Carbon Dioxide 27 Anion Gap 10 BUN 12 Creatinine 0.5 Est GFR ( Amer) > 60 Est GFR (Non-Af Amer) > 60 POC Glucose (mg/dL) Random Glucose 187 H Hemoglobin A1c Calcium 9.0 Total Bilirubin 0.6 AST 47 H ALT 52 Alkaline Phosphatase 222 H Total Protein 5.8 Albumin 2.6 L Globulin 3.2 Albumin/Globulin Ratio 0.8 L Free T4 3.12 H Thyroxine (T4) 16.0 H TSH 3rd Generation < 0.02 L HIV 1&2 Antibody Screen Assessment & Plan - Assessment and Plan (Free Text) Assessment: 56 year old female who originally presented with vomiting, found to be in DKA with glucose of 1248, general surgery consultation placed for left groin/labial abscess. Plan: Discussed intervention with patient, including placement of a word catheter to help with drainage, patient refused Patient amenable to warm saline gauze application to help encouraged continued drainage Cont IV abx and blood sugar management per primary team and ID, notes reviewed and appreciated We will follow patient Discussed with attending physician. Thank you for the pleasure of participating in the care of this patient. - Date & Time Date: 02/06/17 Time: 10:30 <Diego Gallegos - Last Filed: 02/06/17 20:45> Meds - Medications Medications: Current Medications Enoxaparin Sodium (Lovenox) 40 mg SC DAILY GILDA PRN Reason: Protocol Last Admin: 02/06/17 10:52 Dose: 40 mg Famotidine (Pepcid) 40 mg PO HS [facility] Last Admin: 02/05/17 21:42 Dose: 40 mg Vancomycin HCl (Vancomycin 1gm) 1 gm in 250 mls @ 167 mls/hr IVPB Q12 GILDA PRN Reason: Protocol Last Admin: 02/06/17 10:52 Dose: 167 mls/hr Piperacillin Sod/Tazobactam Sod (Zosyn 3.375 In Ns 100ml) 100 mls @ 200 mls/hr IVPB Q6 GILDA PRN Reason: Protocol Stop: 02/12/17 12:01 Last Admin: 02/06/17 18:11 Dose: 200 mls/hr Insulin Detemir (Levemir) 47 unit SC DAILY [facility] Last Admin: 02/06/17 11:32 Dose: 47 unit Insulin Detemir (Levemir) 20 unit SC HS [facility] Insulin Human Lispro (Humalog) 12 units SC AC [facility] Last Admin: 02/06/17 17:30 Dose: Not Given Insulin Human Lispro (Humalog Low) 0 units SC ACHS GILDA PRN Reason: Protocol Last Admin: 02/06/17 17:28 Dose: Not Given Ondansetron HCl (Zofran Inj) 4 mg IVP Q4H PRN PRN Reason: Nausea/Vomiting Results - Vital Signs Recent Vital Signs: Last Vital Signs Temp 97.8 F 06/14/17 16:00 Pulse 77 02/06/17 18:00 Resp 20 02/06/17 16:00 BP 136/85 02/06/17 16:00 Pulse Ox 100 02/06/17 16:00 - Labs Result Diagrams: 02/06/17 08:00 02/06/17 08:00 Labs: Laboratory Results - last 24 hr 02/05/17 02/05/17 02/05/17 06:00 08:04 08:53 WBC RBC Hgb Hct MCV MCH MCHC RDW Plt Count MPV Gran % Lymph % (Auto) [place] % (Auto) Eos % (Auto) Baso % (Auto) Gran # Lymph # [place] # Eos # Baso # Sodium Potassium Chloride Carbon Dioxide Anion Gap BUN Creatinine Est GFR ( Amer) Est GFR (Non-Af Amer) POC Glucose (mg/dL) 181 H 229 H Random Glucose C-Peptide 0.33 L Calcium Total Bilirubin AST ALT Alkaline Phosphatase Total Protein Albumin Globulin Albumin/Globulin Ratio Free T4 Thyroxine (T4) TSH 3rd Generation 02/05/17 02/05/17 02/05/17 09:57 11:01 11:49 WBC RBC Hgb Hct MCV MCH MCHC RDW Plt Count MPV Gran % Lymph % (Auto) [place] % (Auto) Eos % (Auto) Baso % (Auto) Gran # Lymph # [place] # Eos # Baso # Sodium Potassium Chloride Carbon Dioxide Anion Gap BUN Creatinine Est GFR ( Amer) Est GFR (Non-Af Amer) POC Glucose (mg/dL) 236 H 197 H 155 H Random Glucose C-Peptide Calcium Total Bilirubin AST ALT Alkaline Phosphatase Total Protein Albumin Globulin Albumin/Globulin Ratio Free T4 Thyroxine (T4) TSH 3rd Generation 02/05/17 02/05/17 02/05/17 12:59 13:57 14:57 WBC RBC Hgb Hct MCV MCH MCHC RDW Plt Count MPV Gran % Lymph % (Auto) [place] % (Auto) Eos % (Auto) Baso % (Auto) Gran # Lymph # [place] # Eos # Baso # Sodium Potassium Chloride Carbon Dioxide Anion Gap BUN Creatinine Est GFR ( Amer) Est GFR (Non-Af Amer) POC Glucose (mg/dL) 170 H 117 H 98 Random Glucose C-Peptide Calcium Total Bilirubin AST ALT Alkaline Phosphatase Total Protein Albumin Globulin Albumin/Globulin Ratio Free T4 Thyroxine (T4) TSH 3rd Generation 02/05/17 02/05/17 02/06/17 17:21 21:28 07:17 WBC RBC Hgb Hct MCV MCH MCHC RDW Plt Count MPV Gran % Lymph % (Auto) [place] % (Auto) Eos % (Auto) Baso % (Auto) Gran # Lymph # [place] # Eos # Baso # Sodium Potassium Chloride Carbon Dioxide Anion Gap BUN Creatinine Est GFR ( Amer) Est GFR (Non-Af Amer) POC Glucose (mg/dL) 113 H 79 169 H Random Glucose C-Peptide Calcium Total Bilirubin AST ALT Alkaline Phosphatase Total Protein Albumin Globulin Albumin/Globulin Ratio Free T4 Thyroxine (T4) TSH 3rd Generation 02/06/17 02/06/17 02/06/17 08:00 08:00 08:00 WBC 7.5 D RBC 4.49 Hgb 13.4 Hct 38.7 MCV 86.2 MCH 29.8 MCHC 34.6 RDW 12.5 Plt Count 124 MPV 10.2 Gran % 65.7 Lymph % (Auto) 25.0 [place] % (Auto) 8.3 H Eos % (Auto) 0.9 L Baso % (Auto) 0.1 Gran # 4.92 Lymph # 1.9 [place] # 0.6 Eos # 0.1 Baso # 0.01 Sodium 136 Potassium 3.6 Chloride 103 Carbon Dioxide 27 Anion Gap 10 BUN 12 Creatinine 0.5 Est GFR ( Amer) > 60 Est GFR (Non-Af Amer) > 60 POC Glucose (mg/dL) Random Glucose 187 H C-Peptide Calcium 9.0 Total Bilirubin 0.6 AST 47 H ALT 52 Alkaline Phosphatase 222 H Total Protein 5.8 Albumin 2.6 L Globulin 3.2 Albumin/Globulin Ratio 0.8 L Free T4 3.12 H Thyroxine (T4) 16.0 H TSH 3rd Generation < 0.02 L 02/06/17 02/06/17 11:20 15:58 WBC RBC Hgb Hct MCV MCH MCHC RDW Plt Count MPV Gran % Lymph % (Auto) [place] % (Auto) Eos % (Auto) Baso % (Auto) Gran # Lymph # [place] # Eos # Baso # Sodium Potassium Chloride Carbon Dioxide Anion Gap BUN Creatinine Est GFR ( Amer) Est GFR (Non-Af Amer) POC Glucose (mg/dL) 353 H 99 Random Glucose C-Peptide Calcium Total Bilirubin AST ALT Alkaline Phosphatase Total Protein Albumin Globulin Albumin/Globulin Ratio Free T4 Thyroxine (T4) TSH 3rd Generation Assessment & Plan - Assessment and Plan (Free Text) Plan: This consult done under my direct supervision. Attending physician notified Nola Gallegos MD FACS
[2017-02-06] MEDS: Insulin Detemir 100 units/ml Vial (Levemir) SC SCH (11:32)
--- NOTE | 2017-02-06 11:59 | CP.PCM.PN ---
Subjective - Date & Time of Evaluation Date of Evaluation: 02/06/17 Time of Evaluation: 11:00 - Subjective Subjective: Comfortable in bed, less pain in the left groin and labial area. No fevers overnight. Objective - Vital Signs/Intake and Output Vital Signs (last 24 hours): Temp Pulse Resp BP Pulse Ox 99.1 F 86 20 130/74 97 02/06/17 09:24 02/06/17 09:24 02/06/17 09:24 02/06/17 09:24 02/06/17 09:24 Intake and Output: 02/06/17 02/06/17 06:59 18:59 Intake Total 2060 Output Total 1250 Balance 810 - Medications Medications: Current Medications Enoxaparin Sodium (Lovenox) 40 mg SC DAILY GILDA PRN Reason: Protocol Last Admin: 02/05/17 09:04 Dose: 40 mg Famotidine (Pepcid) 40 mg PO HS [facility] Last Admin: 02/05/17 21:42 Dose: 40 mg Vancomycin HCl (Vancomycin 1gm) 1 gm in 250 mls @ 167 mls/hr IVPB Q12 GILDA PRN Reason: Protocol Last Admin: 02/05/17 21:43 Dose: 167 mls/hr Piperacillin Sod/Tazobactam Sod (Zosyn 3.375 In Ns 100ml) 100 mls @ 200 mls/hr IVPB Q6 GILDA PRN Reason: Protocol Stop: 02/12/17 12:01 Last Admin: 02/06/17 06:58 Dose: 200 mls/hr Insulin Detemir (Levemir) 47 unit SC DAILY [facility] Last Admin: 02/05/17 09:03 Dose: 47 unit Insulin Human Regular (Humulin R High) 0 units SC ACHS GILDA PRN Reason: Protocol Last Admin: 02/06/17 08:35 Dose: 2 units Ondansetron HCl (Zofran Inj) 4 mg IVP Q4H PRN PRN Reason: Nausea/Vomiting - Labs Labs: 02/06/17 08:00 02/06/17 08:00 - Constitutional Appears: Non-toxic, No Acute Distress - Head Exam Head Exam: NORMAL INSPECTION - ENT Exam ENT Exam: Mucous Membranes Moist - Neck Exam Neck Exam: absent: Lymphadenopathy, Meningismus - Respiratory Exam Respiratory Exam: Decreased Breath Sounds - Cardiovascular Exam Cardiovascular Exam: +S1, +S2 - GI/Abdominal Exam GI & Abdominal Exam: Soft. absent: Tenderness Additional comments: decreased swelling and erythema over the left groin and labia, still with pus coming out Assessment and Plan - Assessment and Plan (Free Text) Plan: Assessment Sepsis due to left groin purulent skin and skin structure infection in a patient with new-onset hyperglycemia significant smoking history Plan continue Vancomycin and Zosyn (day 2) pending wound cx and surgical evaluation and plans - blood cx are negative; CT scan of the abdomen and pelvis did not show deeper infection will continue to monitor clinically
--- NOTE | 2017-02-06 16:54 | PN ---
DATE: 02/06/2017 LOCATION: Room 378. SUBJECTIVE: This is a 56-year-old female with recent uncontrolled type 2 insulin-requiring diabetes, presenting here with marked hyperglycemic accelerations and concomitant hyperosmolar hyperglycemic s bruce with clearly a recent diagnosis and evaluation for uncontrolled type 2 insulin-requiring diabete s and is now being followed closely for metabolic management. She has since then received vigorous I V hydration and intensive insulin therapy with remarkable improvement thereof. However, now with the insulin drip infusion being stopped and the patient has been placed on a sliding scale coverage at _ ____ dose of regular insulin and also has had the initiation of Levemir given in the morning as noted , she continues to still have hyperglycemic accelerations especially pre-prandially as noted. Her gl ucose levels today have ranged from 169-353 mg/dL. Her latest chemistries include a BUN of 12, sodiu m 136, potassium 3.6, chloride 103, CO2 of 27, glucose 187 and creatinine 0.5. So, at this time, we will actually modify her current insulin regimen and switch her to a more physiologic basal and bolus insulin drug combination as ordered. Would preferably switch her basal insulin to a bedtime dosing and we will start her with Levemir at 20 units subQ at bedtime daily tonight. We will titrate increm entally as indicated to optimize her metabolic control. We will also add Humalog given as 12 units s ubQ t.i.d. before meals to start at dinnertime today as ordered. We will modify the coverage scale t o obviate hypoglycemia and detailed orders have been given low dose Humalog insulin coverage as indicated. We will initiate diabetic education and dietary instructions at the time of this admissi on, especially to initiate insulin self-administration and we will talk to our diabetic nurse educato r regarding the mentioned. We will follow this. Kaelyn Arnold MD cc: [id number] TT: 02/06/2017 16:53:55 Confirmation # [id number] Dictation # [id number]
[2017-02-06] MEDS: Insulin Lispro (humaLOG) LOW Coverage SC SCH ×2 (17:28→22:00)
[2017-02-06] MEDS: Insulin Lispro 1 UNITS/0.01 ML SC SCH (17:30)
--- NOTE | 2017-02-06 18:46 | CP.PCM.PCO ---
Physician Communication Note - Physician Communication Note Physician Communication Note: Labial abscess draining--Pt Refuses drainage now/c /s Done now
[2017-02-06] MEDS ORDERED: Insulin Detemir 100 units/ml Vial (Levemir) SC SCH (22:00)
[2017-02-07] MEDS: Piperacillin/Tazobact 3.375 gm 100 ML IVPB SCH ×4 (05:11→23:24)
[2017-02-07 07:49] LABS: ADD MANUAL DIFF? NO
[2017-02-07 07:54] LABS: BASO # 0.01 K/mm3 (0.0-2.0); BASO % 0.2 % (0.0-3.0); EOS % 0.3 % (1.5-5.0); GRAN # 4.32 (1.4-6.5); GRAN % 67.4 % (50.0-68.0); LYMPH # 1.5 (1.2-3.4); LYMPH % 22.9 % (22.0-35.0); MEAN CELL VOLUME 85.8 fL (80.0-105.0); MEAN CORPUSCULAR HEMOGLOBIN 29.4 pg (25.0-35.0); MEAN CORPUSCULAR HGB CONC 34.3 g/dl (31.0-37.0); MEAN PLATELET VOLUME 10.7 fl (7.0-11.0); MONO # 0.6 (0.1-0.6); MONO % 9.2 % (1.0-6.0); PLATELET COUNT 93 10^3/uL (120.0-450.0); RED CELL DISTRIBUTION WIDTH 12.1 % (11.5-14.5); WHITE BLOOD COUNT 6.4 10^3/ul (4.5-11.0)
[2017-02-07 08:01] LABS: ALB/GLOB RATIO 0.8 (1.1-1.8); ALKALINE PHOSPHATASE 173 U/L (38-133); ALT/SGPT 48 U/L (7-56); AST/SGOT 26 U/L (15-39); BILIRUBIN,TOTAL 0.5 mg/dL (0.2-1.3); BLOOD UREA NITROGEN 9 mg/dL (7-21); CALCIUM 8.5 mg/dL (8.4-10.5); CARBON DIOXIDE 25 mmol/L (21-33); CHLORIDE 103 mmol/L (98-107); GFR AFRICAN-AMERICAN > 60; GLUCOSE,RANDOM 187 mg/dL (70-110); POTASSIUM 3.6 mmol/L (3.6-5.0); SODIUM 132 mmol/L (132-148); TOTAL PROTEIN 5.4 g/dL (5.8-8.3)
[2017-02-07] MEDS: Insulin Lispro (humaLOG) LOW Coverage SC SCH ×4 (08:54→22:00)
[2017-02-07] MEDS: Insulin Lispro 1 UNITS/0.01 ML SC SCH ×3 (08:58→18:35)
--- NOTE | 2017-02-07 09:49 | PN ---
DATE: 02/07/2017 SUBJECTIVE: The patient is seen and examined at bedside on the telemetry plaza. No acute events over night. She remains afebrile and hemodynamically stable, and with significantly improved glycemic con trol. This morning she states she feels well and offers no complaints. She states that her labial a bscess continues to drain and is improving, and again, denies fevers, chills, or rigors. OBJECTIVE: VITAL SIGNS: Temperature 100.1, pulse 70, blood pressure 127/72, respiratory rate 20, oxygen saturat ion 97% on room air. GENERAL: No apparent distress. HEENT: PERRL. EOMI. No scleral icterus. No conjunctival pallor. Mucous membranes are moist. NECK: Supple with full range of motion. No JVD, no bruits. LUNGS: Clear to auscultation. CARDIOVASCULAR: Regular rate and rhythm, normal S1 and S2. No murmurs, rubs, or gallops. ABDOMEN: Normoactive bowel sounds, soft, nontender, nondistended. EXTREMITIES: No edema. NEUROLOGIC: Awake, alert, and oriented x 3. No focal motor deficits. SKIN: Improving erythema to the left para-labial region with improved warmth and tenderness. LABORATORY DATA: WBC 6.4 with 67% neutrophils, hemoglobin 12, hematocrit 35, platelets 93. Chemistr y reviewed and unremarkable. Blood cultures with no growth to date. ASSESSMENT: The patient is a 56-year-old woman with no known medical problems who presents to [facility] Emergency Department with a 1-week history of progressively worsening fatigue, malai se, nausea, vomiting, and dyspepsia, and who was admitted to the ICU for management of uncontrolled t ype 2 diabetes mellitus with hyperosmolar hyperglycemic state, who is now status post transfer out of the ICU and clinically improving. PLAN: 1. Hyperosmolar hyperglycemic state, resolved. Input from Dr. Arnold of endocrinology noted and greatl y appreciated, and the patient remains on Levemir 47 units subcutaneously daily and Levemir 20 units subcutaneously at bedtime, as well as Humalog 12 units subcutaneously t.i.d. with meals. The patient 's hemoglobin A1c is 16.6. 2. Type 2 diabetes mellitus, newly diagnosed, uncontrolled. Continue with care as per #1. 3. Labial abscess, left-sided. Input from Dr. Crowder noted and appreciated. Input from Dr. Gallegos noted and also greatly appreciated. The patient remains afebrile and with resolved leukocytosis. C ultures remain negative to date. Continue with current antimicrobials, as per Dr. Crowder. 4. Tobacco dependence. The patient declines nicotine patch at present. 5. Prophylaxis. GI prophylaxis is not indicated, as the patient is eating. Continue with Lovenox 4 0 mg subcutaneously daily for deep venous thrombosis prophylaxis. CODE STATUS: Full code. Allan Tsang MD cc: [phone] TT: 02/07/2017 09:48:45 Confirmation # [id number] Dictation # [id number] jn
[2017-02-07] MEDS: Enoxaparin 40 mg Syringe SC SCH (09:51)
[2017-02-07] MEDS: Insulin Detemir 100 units/ml Vial (Levemir) SC SCH ×2 (09:52→22:00)
[2017-02-07] MEDS: Vancomycin 1gm in NS 250ml 1 GM/250 ML BAG IVPB SCH ×2 (10:00→21:41)
--- NOTE | 2017-02-07 12:29 | CP.PCM.PN ---
Subjective - Date & Time of Evaluation Date of Evaluation: 02/07/17 Time of Evaluation: 07:58 - Subjective Subjective: Kenji Aceves D.O. PGY-1, General Surgery Progress Note: Dr. El Noble. 56 year old female who originally presented with vomiting, found to be in DKA , general surgery consultation placed for left groin/labial abscess. Patient was seen and examined at bedside with surgical team. Patient is doing very well at this time, states that her swelling and pain have decreased and she actually just had a nice hot shower. The abscess continues to drain at patient states that she does not want to have anything done for it. Patient denied any N/V/C/D/ fevers/chills or otherwise. Objective - Vital Signs/Intake and Output Vital Signs (last 24 hours): Temp Pulse Resp BP Pulse Ox 99.4 F 77 20 141/99 H 99 02/07/17 09:07 02/07/17 09:07 02/07/17 09:07 02/07/17 09:07 02/07/17 09:07 Intake and Output: 02/07/17 02/07/17 06:59 18:59 Intake Total 1290 Output Total 500 Balance 790 - Medications Medications: Current Medications Enoxaparin Sodium (Lovenox) 40 mg SC DAILY [facility]ILDA PRN Reason: Protocol Last Admin: 02/07/17 09:51 Dose: 40 mg Famotidine (Pepcid) 40 mg PO HS [facility] Last Admin: 02/06/17 21:42 Dose: 40 mg Vancomycin HCl (Vancomycin 1gm) 1 gm in 250 mls @ 167 mls/hr IVPB Q12 GILDA PRN Reason: Protocol Last Admin: 02/06/17 21:42 Dose: 167 mls/hr Piperacillin Sod/Tazobactam Sod (Zosyn 3.375 In Ns 100ml) 100 mls @ 200 mls/hr IVPB Q6 GILDA PRN Reason: Protocol Stop: 02/12/17 12:01 Last Admin: 02/07/17 05:11 Dose: 200 mls/hr Insulin Detemir (Levemir) 47 unit SC DAILY [facility] Last Admin: 02/07/17 09:52 Dose: 47 unit Insulin Detemir (Levemir) 20 unit SC HS [facility] Last Admin: 02/06/17 21:57 Dose: Not Given Insulin Human Lispro (Humalog) 12 units SC AC [facility] Last Admin: 02/07/17 08:58 Dose: 12 units Insulin Human Lispro (Humalog Low) 0 units SC ACHS GILDA PRN Reason: Protocol Last Admin: 02/07/17 12:19 Dose: Not Given Ondansetron HCl (Zofran Inj) 4 mg IVP Q4H PRN PRN Reason: Nausea/Vomiting - Labs Labs: 02/07/17 07:00 02/07/17 07:00 - Constitutional Appears: Well, Non-toxic, No Acute Distress - Head Exam Head Exam: ATRAUMATIC, NORMOCEPHALIC - Eye Exam Eye Exam: EOMI, Normal appearance. absent: Scleral icterus - ENT Exam ENT Exam: Mucous Membranes Moist - Respiratory Exam Respiratory Exam: absent: Accessory Muscle Use, Respiratory Distress - Exam Additional comments: left groin/labia abscess decreased in size significantly, pus draining - Extremities Exam Extremities exam: Negative for: pedal edema - Neurological Exam Neurological exam: Alert, Oriented x3 - Skin Skin Exam: Dry, Warm Assessment and Plan - Assessment and Plan (Free Text) Assessment: 56 year old female with left groin/labial abscess. Plan: Improved Continue saline gauze application to help encouraged continued drainage Cont IV abx and blood sugar management per primary team and ID, notes reviewed and appreciated Discussed with attending physician. Thank you for the pleasure of participating in the care of this patient.
[2017-02-07 15:21] LABS: PH,URINE 7.5 (4.7-8.0); URINE BILIRUBIN NEGATIVE (NEGATIVE); URINE BLOOD NEGATIVE (NEGATIVE); URINE GLUCOSE (UA) NEGATIVE (NEGATIVE); URINE KETONE NEGATIVE (NEGATIVE); URINE LEUKOCYTE ESTERASE NEGATIVE Leu/uL (NEGATIVE); URINE PROTEIN NEGATIVE mg/dL (<30 mg/dL); URINE UROBILINOGEN 0.2 E.U./dL (<1 E.U./dL)
[2017-02-07 15:26] LABS: URINE APPEARANCE CLEAR (CLEAR); URINE COLOR YELLOW (YELLOW)
--- NOTE | 2017-02-07 16:15 | PN ---
DATE: 02/07/2017 ROOM: 378 This is a 56-year-old female with recent uncontrolled type 2 insulin-requiring diabetes of very recen t diagnosis, presenting here with marked hyperglycemic accelerations and a hyperosmolar hyperglycemic state with dehydration and has since then improved clinically and metabolically as noted thereof. S he was given intensive insulin therapy with an insulin drip infusion and vigorous IV hydration at the ICU as noted. Her glycemic levels are fluctuating, but improved and the latest chemistries showed a BUN of 9, sodium 132, potassium 3.6, chloride 103, CO2 of 25, glucose 187 and creatinine 0.5. Her g lucose values have ranged from 132-254 mg/dL. Surprisingly, her thyroid levels as repeated have show n presence of hyperthyroxinemia with a T4 of 16.0 mcg/dL and a free T4 of 3.12 and a TSH of less than 0.02. So, at this time, we will initiate Tapazole for medical management of hyperthyroidism given as 10 mg p.o. b.i.d. to start tonight and we will titrate incrementally as indicated to optimize metabolic con trol. We will also modify her basal insulin and actually discontinue the morning basal insulin which was ordered by the other physician and switch her over to basal insulin at night with Levemir to be increased to 30 units subQ at bedtime daily to start tonight. We will titrate her Humalog to 14 unit s subQ t.i.d. to start at dinnertime today as ordered. We will continue the low-dose correction scal e using Humalog insulin as given. We will obtain serial chemistries and serial thyroid studies and a djust her dose regimen accordingly. We will also obtain thyroid antibodies with a thyroid stimulatin g immunoglobulin and a thyroid peroxidase antibody to confirm and/or indicate the presence of underly ing thyroid autoimmunity. We will follow and advise accordingly. Kaelyn Arnold MD cc: [id number] TT: 02/07/2017 16:14:14 Confirmation # [id number] Dictation # [id number] sn
--- NOTE | 2017-02-07 16:33 | PN ---
DATE: 02/07/2017 HISTORY OF PRESENT ILLNESS: The patient is in bed in no acute distress, nontoxic, no fevers, and no chills. PHYSICAL EXAMINATION: VITAL SIGNS: Temperature is 98, blood pressure is 140/90, respiratory rate of 20, heart rate of 77. T-max was 100.1 earlier today. HEENT: Unremarkable. NECK: Supple. LUNGS: Have decreased breath sounds. HEART: Normal S1, S2. ABDOMEN: Soft, nontender. LABORATORY DATA: Reveals a white count of 6.4, hemoglobin of 12. A BUN of 9, creatinine of 0.5. Ur inalysis is noted. Serology: HIV serology is negative. Microbiology reveals the cultures are negat seble. Urine culture is negative. Blood cultures are negative. The patient's procalcitonin is report ed to be 0.10. Review of orders reveals the patient to be on IV vancomycin and Zosyn. Repeat chest x-ray is pending. Dr. Allan Tsang's note from today is reviewed and Dr. Gallegos' communication report is reviewed . ASSESSMENT AND PLAN: A 56-year-old female seen early this morning at 378, bed 1. She states she is feeling much better. Admitted with sepsis with a left groin purulent skin and skin structure and inf ection in a patient with new onset of hyperglycemia, currently on vancomycin and Zosyn, day #3. Will check on the doty culture results and follow the fever curve. She did have a low-grade fever today o f 100.2, and will follow that and make further recommendations, and check on the repeat chest x-ray. Jerry Cruz MD cc: [phone] TT: 02/07/2017 16:32:50 Confirmation # [id number] Dictation # [id number] felicia
[2017-02-08] MEDS: Piperacillin/Tazobact 3.375 gm 100 ML IVPB SCH ×3 (05:31→18:07)
[2017-02-08 07:49] LABS: ADD MANUAL DIFF? NO
[2017-02-08 07:52] LABS: BASO # 0.01 K/mm3 (0.0-2.0); BASO % 0.2 % (0.0-3.0); EOS # 0.1 (0.0-0.7); EOS % 1.8 % (1.5-5.0); GRAN # 2.94 (1.4-6.5); GRAN % 59.6 % (50.0-68.0); HEMATOCRIT 34.5 % (36.0-48.0); LYMPH # 1.4 (1.2-3.4); LYMPH % 28.3 % (22.0-35.0); MEAN CELL VOLUME 86.3 fL (80.0-105.0); MEAN CORPUSCULAR HEMOGLOBIN 29.8 pg (25.0-35.0); MEAN CORPUSCULAR HGB CONC 34.5 g/dl (31.0-37.0); MEAN PLATELET VOLUME 11.9 fl (7.0-11.0); MONO # 0.5 (0.1-0.6); MONO % 10.1 % (1.0-6.0); PLATELET COUNT 96 10^3/uL (120.0-450.0); RED CELL DISTRIBUTION WIDTH 12.2 % (11.5-14.5); WHITE BLOOD COUNT 4.9 10^3/ul (4.5-11.0)
[2017-02-08 08:04] LABS: ALB/GLOB RATIO 0.8 (1.1-1.8); ALKALINE PHOSPHATASE 159 U/L (38-133); ALT/SGPT 44 U/L (7-56); AST/SGOT 22 U/L (15-39); BILIRUBIN,TOTAL 0.4 mg/dL (0.2-1.3); BLOOD UREA NITROGEN 8 mg/dL (7-21); CALCIUM 8.7 mg/dL (8.4-10.5); CARBON DIOXIDE 26 mmol/L (21-33); CHLORIDE 106 mmol/L (98-107); GFR AFRICAN-AMERICAN > 60; GLUCOSE,RANDOM 137 mg/dL (70-110); POTASSIUM 3.5 mmol/L (3.6-5.0); SODIUM 137 mmol/L (132-148); TOTAL PROTEIN 5.5 g/dL (5.8-8.3)
[2017-02-08 08:18] LABS: FREE T4 2.09 ng/dL (0.78-2.19); T4 12.2 ug/dL (5.5-11.0)
[2017-02-08 08:32] LABS: THYROID STIMULATING HORMONE < 0.02 mIU/mL (0.46-4.68)
[2017-02-08] MEDS: Insulin Lispro 1 UNITS/0.01 ML SC SCH ×3 (09:58→18:06)
[2017-02-08] MEDS: Insulin Lispro (humaLOG) LOW Coverage SC SCH ×4 (10:02→22:07)
[2017-02-08] MEDS: Vancomycin 1gm in NS 250ml 1 GM/250 ML BAG IVPB SCH ×2 (10:03→22:09)
[2017-02-08] MEDS: Enoxaparin 40 mg Syringe SC SCH (10:03)
--- NOTE | 2017-02-08 10:03 | PN ---
DATE: 02/08/2017 She is a 56-year-old white female with no specific complaints. There were no acute events overnight. PHYSICAL EXAMINATION: VITAL SIGNS: Temperature of 98.7, pulse rate of 76, respiratory rate of 20 with 96% saturation on ro om air. HEENT: PERRLA, EOMI. NECK: Supple with a full range of motion. LUNGS: Clear bilaterally. HEART: Regular rate and rhythm. No murmurs, rubs, or gallops. ABDOMEN: Soft, nontender. Bowel sounds are normoactive. EXTREMITIES: Show no edema. LABORATORY DATA: Hemoglobin and hematocrit are 11.9 and 34.5, platelet count of 96,000. Potassium o f 3.5, glucose of 191. T4 12.2. TSH, third generation, less than 0.02. PLAN: We will continue patient on insulin. Most likely will be discharged tomorrow in the morning. DIAGNOSES: 1. New onset of diabetes mellitus type 2. 2. Possible hypothyroidism. Raúl Tsang MD cc: [id number] TT: 02/08/2017 10:02:41 Confirmation # [id number] Dictation # [id number] tn
--- NOTE | 2017-02-08 11:14 | RAD ---
HISTORY: coughing/fever COMPARISON: 02/04/2017. FINDINGS: LUNGS: The lungs are well inflated and clear. There is a linear scar in the right mid lung. PLEURA: No significant pleural effusion identified, no pneumothorax apparent. CARDIOVASCULAR: Normal. OSSEOUS STRUCTURES: No significant abnormalities. VISUALIZED UPPER ABDOMEN: Normal. OTHER FINDINGS: None. IMPRESSION: No active pulmonary disease.
--- NOTE | 2017-02-08 21:24 | PN ---
DATE: 02/08/2017 ROOM: 378. SUBJECTIVE: This is a 56-year-old female with recent uncontrolled type 2 insulin-requiring diabetes, presenting here with hyperosmolar hyperglycemic state and dehydration and has since then improved cl inically and metabolically as noted thereof. Moreover, she also had a surprise diagnosis and evaluat ion for overt hyperthyroidism which was confirmed biochemically with elevated thyroid indices as note d. Her latest chemistries showed a BUN of 8, sodium 137, potassium 3.5, chloride 106, CO2 26, glucos e 137, and creatinine 0.5. Her glucose levels have ranged now from 134-191 and 292 mg/dL. Her thyro id studies initially showed a T4 of 16.0 with a free T4 of 3.12 and a TSH of less than 0.02. So at t his time, we will continue the initiation of the medical therapy for hyperthyroidism with Tapazole gi terrell as 10 mg p.o. b.i.d. after meals as ordered. We will titrate incrementally as indicated to optim ize metabolic control. The implications of overt hyperthyroidism have been discussed with the patien t lengthily at bedside and also the need for outpatient lab testing and medical followup has also bee n discussed accordingly. We will also continue her basal and bolus insulin regimen with Levemir give n as 30 units subQ at bedtime daily and Humalog given as 14 units subQ t.i.d. before meals as ordered . We will titrate incrementally as indicated to optimize metabolic control. We will follow. Kaelyn Arnold MD cc: [id number] TT: 02/08/2017 21:24:13 Confirmation # [id number] Dictation # [id number] delicia
[2017-02-08 21:27] VITALS: RESP 20
[2017-02-08] MEDS: Insulin Detemir 100 units/ml Vial (Levemir) SC SCH (22:09)
[2017-02-09] MEDS: Piperacillin/Tazobact 3.375 gm 100 ML IVPB SCH (00:15)
[2017-02-09 08:02] LABS: ADD MANUAL DIFF? NO
[2017-02-09 08:06] LABS: BASO # 0.01 K/mm3 (0.0-2.0); BASO % 0.2 % (0.0-3.0); EOS % 0.5 % (1.5-5.0); GRAN # 4.92 (1.4-6.5); GRAN % 74.7 % (50.0-68.0); HEMATOCRIT 36.1 % (36.0-48.0); LYMPH # 1.1 (1.2-3.4); LYMPH % 16.1 % (22.0-35.0); MEAN CELL VOLUME 86.6 fL (80.0-105.0); MEAN CORPUSCULAR HEMOGLOBIN 29.7 pg (25.0-35.0); MEAN CORPUSCULAR HGB CONC 34.3 g/dl (31.0-37.0); MONO # 0.6 (0.1-0.6); MONO % 8.5 % (1.0-6.0); PLATELET COUNT 152 10^3/uL (120.0-450.0); RED CELL DISTRIBUTION WIDTH 12.3 % (11.5-14.5); WHITE BLOOD COUNT 6.6 10^3/ul (4.5-11.0)
[2017-02-09 08:18] LABS: ALB/GLOB RATIO 0.8 (1.1-1.8); ALKALINE PHOSPHATASE 161 U/L (38-133); ALT/SGPT 42 U/L (7-56); AST/SGOT 23 U/L (15-39); BILIRUBIN,TOTAL 0.3 mg/dL (0.2-1.3); BLOOD UREA NITROGEN 8 mg/dL (7-21); CALCIUM 8.8 mg/dL (8.4-10.5); CARBON DIOXIDE 27 mmol/L (21-33); CHLORIDE 101 mmol/L (98-107); GFR AFRICAN-AMERICAN > 60; POTASSIUM 4.4 mmol/L (3.6-5.0); SODIUM 132 mmol/L (132-148); TOTAL PROTEIN 6.2 g/dL (5.8-8.3)
[2017-02-09 08:27] LABS: GLUCOSE,RANDOM 345 mg/dL (70-110)
[2017-02-09 08:31] VITALS: BP 115/68; PULSE 80; TEMP 98.5; O2SAT 99
[2017-02-09] MEDS: Insulin Lispro (humaLOG) LOW Coverage SC SCH (08:35)
[2017-02-09] MEDS: Insulin Lispro 1 UNITS/0.01 ML SC SCH (08:36)
[2017-02-09] MEDS: Vancomycin 1gm in NS 250ml 1 GM/250 ML BAG IVPB SCH (09:35)
[2017-02-09] MEDS: Enoxaparin 40 mg Syringe SC SCH (09:35)
[2017-02-09] MEDS ORDERED: Fluconazole IV 200mg/100 ml NS 100 MG in Premixed IV 1 EA IVPB SCH (10:45)
--- NOTE | 2017-02-09 11:29 | PN ---
DATE: 02/09/2017 SUBJECTIVE: The patient seen and examined at bedside on the telemetry plaza. No acute events overnig ht. She remains afebrile and hemodynamically stable. This morning, she feels great and states that her labial abscess has nearly fully resolved and otherwise offers no complaints. OBJECTIVE: VITAL SIGNS: Temperature 98.5, pulse 80, blood pressure 115/68, respiratory rate 20, oxygen saturati on 99% on room air. GENERAL: No apparent distress. HEENT: PERRL, EOMI. No scleral icterus. No conjunctival pallor. NECK: No JVD, no bruits. LUNGS: Clear to auscultation. CARDIOVASCULAR: Regular rate and rhythm, normal S1 and S2, no murmurs, rubs or gallops. ABDOMEN: Normoactive bowel sounds, soft, nontender, nondistended. EXTREMITIES: No edema. NEUROLOGIC: Awake, alert and oriented x 3. No focal motor deficits. SKIN: Nearly resolved erythema to the left para-labial region with resolution of warmth and tenderne ss. LABORATORY DATA: CBC reviewed and unremarkable. CMP reviewed and unremarkable with the exception of a glucose of 345. ASSESSMENT: The patient is a 56-year-old woman with no known medical problems who presented to [facility] Emergency Department with a 1-week history of progressively worsening fatigue, yony ise, nausea, vomiting and dyspepsia and who was admitted to the ICU for management of uncontrolled ty pe 2 diabetes mellitus with hyperosmolar, hyperglycemic state/diabetic ketoacidosis, who is now statu s post transfer out of the ICU and clinically stable for discharge to home. PLAN: 1. Hyperosmolar hyperglycemic state/DKA, resolved. Input from Dr. Arnold of endocrinology noted and gr eatly appreciated. The patient remains on Levemir 30 units SC at bedtime and Humalog 14 units SC t.i .d. with meals. The patient's hemoglobin A1c is 16.6. 2. Type 2 diabetes mellitus, newly diagnosed, uncontrolled. Continue with care as per #1. 3. Labial abscess, left sided, resolved. Input from Dr. Crowder and Dr. Cruz of infectious dise ase noted and greatly appreciated. The patient remains afebrile and hemodynamically stable and with blood cultures negative to date. Will complete course of oral Bactrim. 4. Hyperthyroidism. Input from Dr. Arnold and greatly appreciated and the patient has been started on methimazole 10 mg p.o. b.i.d. 5. Tobacco dependence. The patient continues to decline nicotine patch. Counseling has again been provided. 6. Prophylaxis. GI prophylaxis not indicated as the patient is eating. Continue with Lovenox 40 mg SC daily for DVT prophylaxis. 7. Disposition: The patient for discharge to home today. CODE STATUS: Full code. Allan Tsang MD cc: [id number] TT: 02/09/2017 11:28:26 Confirmation # [id number] Dictation # [id number] tn
[2017-02-09] MEDS ORDERED: ceFAZolin 1 gm in NS 1 GM/100 ML BAG IVPB SCH (14:00)
[2017-02-09] MEDS ORDERED: Insulin Detemir 100 units/ml Vial (Levemir) SC SCH (22:00)
[2017-02-10 20:12] LABS: TSI 153 % baseline (<140)
== END 2017-02-09 11:54 | disposition home or self-care (01) | DRG 871 ==
LOC: ED 09:35 → ERH 11:42 → CCU 13:51 → 3RSO 02-05 21:17
PROVIDERS: ADMIT Internal Medicine; ATTEND Internal Medicine
DX: A41.9 Sepsis, unspecified organism (principal); E11.00 Type 2 diabetes mellitus with hyperosmolarity without nonketotic hyperglycemic-hyperosmolar coma (NKHHC); E87.1 Hypo-osmolality and hyponatremia; L02.214 Cutaneous abscess of groin; N76.4 Abscess of vulva; E05.90 Thyrotoxicosis, unspecified without thyrotoxic crisis or storm; E86.0 Dehydration; F10.20 Alcohol dependence, uncomplicated; F12.90 Cannabis use, unspecified, uncomplicated; F17.210 Nicotine dependence, cigarettes, uncomplicated; K59.00 Constipation, unspecified; R62.7 Adult failure to thrive; Z82.49 Family history of ischemic heart disease and other diseases of the circulatory system; Z83.3 Family history of diabetes mellitus; R40.2412 Glasgow coma scale score 13-15, at arrival to emergency department; R10.10 Upper abdominal pain, unspecified; B95.1 Streptococcus, group B, as the cause of diseases classified elsewhere